=== PATIENT | female | born 1990 | race Native Hawaiian/Other Pacific Islander ===

== ENCOUNTER 2021-08-16 07:48 | Outpatient (CLI) | payer OTHER, SELFPAY ==
[2021-08-16 08:28] LABS: Alanine Aminotransferase 21 U/L (4-35); Albumin Level 4.5 g/dL (3.5-5.1); Alkaline Phosphatase 75 U/L (38-126); Amylase 93 U/L (30-110); Aspartate Amino Transferase 40 U/L (14-36); Bilirubin,Total 0.6 mg/dL (0.2-1.3); Lipase 229 U/L (23-300)
== END 2021-08-16 07:49 | disposition home or self-care (01) ==
LOC: ANHSURGERY 07:52
PROVIDERS: PCP Family Medicine; Visit Provider Surgery
DX: Z01.818 Encounter for other preprocedural examination (principal); K80.00 Calculus of gallbladder with acute cholecystitis without obstruction
CPT/HCPCS: 36415; 80076; 82150; 83690; 86850; 86900; 86901

== ENCOUNTER 2021-08-22 02:19 | Day surgery (SDC) | payer OTHER, SELFPAY ==
[2021-08-15 08:29] VITALS: BMI 36.7
--- NOTE | 2021-08-15 08:39 | PC.NURSE ---
Report to the Outpatient Waiting Room, entrance under the green pavilion located off [facility], at time 12:00 on date 08/22/21. OR Time: 2:00. - You and your visitor will be asked a series of questions to screen for COVID 19 for your protection. - A mask is required within the hospital. One visitor will be allowed to accompany the patient into the hospital. Patients visitor will be instructed to remain with patient at all times or leave the building. We will allow the visitor to come back to the postoperative area when patient is ready. Preoperative COVID Testing Requirements: No COVID Test needed if: (proof is required; if not received patient will have Rapid Test prior to entry) - Patient has received COVID Vaccine at least 14 days prior to procedure date or - Patient has positive COVID test result within last 90 days of surgery date. COVID Test needed if above criteria is not met Patients may have clear liquids (water, carbonated beverages, clear teas, apple juice) until 3 hours prior to surgery (11:00) with a maximum of 20 ounces. - No food from midnight until time of surgery Take the following medications with a SIP of water the morning of surgery: SERTRALINE Medications to discontinue per physician: VITAMINS/SUPPLEMENTS Date to take last dose: 08/18/21 Please no make-up, nail mongolian, hairspray, perfume, deodorant, or body powder the day of surgery. No jewelry (including any body piercings) or valuables the day of surgery, leave them at home. Please take a shower or bath the night before, or the morning of, surgery with an antibacterial soap. Wear comfortable, loose fitting clothing. HIBICLENS SHOWER - Jewelry must be removed prior to entering the operating room. Rings and piercings that are not removed may be cut off. - The hospital will not accept responsibility for valuables. - Please leave all valuables, including medications, at home the day of surgery. If you are going home after surgery, a licensed automobile drivers must drive you home. - NO public transportation without another adult. - We recommend that an adult stay with you for 24 hours following discharge. - We also recommend that you do not drive, make important decision, drink alcoholic beverages, or take any drugs that were not prescribed by your health care provider for at least 24 hours after your discharge time. Follow any additional instructions given to you from your surgeon. Telephone instructions given to MOISES MANNING and asked if any additional questions and then verbalized understanding. Patient advised to call surgeon office or pre surgery nurse liaison [phone] if any additional questions.
[2021-08-22] VITALS (11 sets, daily range): BP systolic 114–140; BP diastolic 71–98; PULSE 76–103; RESP 13–20; TEMP 36.2–36.3; O2SAT 96–100
--- NOTE | 2021-08-22 11:57 | WPDHPUPDATE1 ---
History and Physical Update Update Date/Time: 08/22/21 11:57 History and Physical has been reviewed, including an updated exam of the patient. There are NO changes in the patient's condition. Risks, benefits, and alternatives have been discussed and questions answered. Patient agrees to proceed with procedure.
[2021-08-22] MEDS: ACETAMINOPHEN 500 MG TABLET 1000 MG PO (12:41)
[2021-08-22] MEDS: LACTATED RINGERS 1,000 ML 30 ML IV CONT ×3 (13:12→15:48)
[2021-08-22] MEDS: KETOROLAC 15 MG/ML VIAL (*BKC) IV PUSH (13:12)
--- NOTE | 2021-08-22 13:26 | WPDANESEPPF ---
Anes - Initial Pre Proc Eval Procedure: Operation Date: 08/22/21 14:00 Proposed Procedures p Laparoscopic Cholecystectomy - Vannessa Hassan MD Date/Time: 08/22/21 13:26 Surgeon: Vannessa Hassan MD Pre Op Diagnosis: acute cholecystitis with stones Patient Data Age: 31 Gender: F Height: 1.63 m Weight: 95.7 kg Last Vital Signs Temp 36.2 C L 08/22/21 11:59 Pulse 95 08/22/21 11:59 Resp 20 08/22/21 11:59 BP 138/98 H 08/22/21 11:59 Pulse Ox 99 08/22/21 11:59 Allergies Allergy/AdvReac Type Severity Reaction Status Date / Time cinnamon Allergy Mild MOUTH Verified 08/22/21 12:35 BLISTERS latex AdvReac Intermediate Rash Verified 08/22/21 12:35 Home Medications Medication Instructions Recorded Confirmed Type medroxyprogesterone 150 mg/mL 150 mg IM [id number] 09/26/19 08/22/21 History intramuscular suspension omeprazole 20 mg capsule,delayed 20 mg PO DAILY #90 cap 09/26/19 08/22/21 Rx release ondansetron HCl 4 mg tablet 4 mg PO Q8H PRN 08/08/21 08/22/21 History sertraline 50 mg tablet 50 mg PO DAILY 08/08/21 08/22/21 History calcium 500 mg PO DAILY 08/15/21 08/22/21 History Patient hx anesthesia problems: other (motion sickness) Family hx anesthesia problems: none Results Review: All pre-operative results and documents have been reviewed as part of the pre-operative evaluation. [facility] Past Medical History Medical History Anxiety Depression Eczema of lower leg Gastroesophageal reflux disease without esophagitis Surgical History Surgical History H/O oral surgery Family History Family History Mother Diabetes mellitus Family history of bipolar disorder Hypertension Father Family history of type 1 diabetes mellitus Depression Anxiety Sibling Anxiety Depression Grandparent Diabetes mellitus Hypertension Grandparent Diabetes mellitus Cerebrovascular accident Social History Social History Smoking status: Never smoker Alcohol intake: current Alcohol use details: has 1 to 2 drinks a month Substance use: never Substance use type: does not use Living arrangements: with family 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 Gender identity (if verbalized by the patient): Female Sexual Orientation (if Verbalized by the Patient): Straight or Heterosexual Spiritual care concerns: No Anes - Eval Final PreProcedure Day of Procedure 08/22/21 13:26 Patient weight: obese Heart: regular rate and rhythm Lungs: clear to auscultation Airway: Mallampati scale class II Neurological: alert and oriented Last oral intake: >/= 8 hours ASA classification: III Emergent: no Anesthetic plan: proceed Anesthesia type and monitoring: general ETT and standard monitoring Results Review: All pre-operative results and documents have been reviewed as part of the pre-operative evaluation. Informed Consent: The patient's anesthetic plan and its attendant risks and benefits were discussed with the patient/family/POA. Questions were solicited and answers provided to the satisfaction of the patient/family/POA.
[2021-08-22] MEDS: SCOPOLAMINE 1.5 MG PATCH TRANSDERM (13:33)
[2021-08-22] MEDS: ceFAZolin 2 GM/D5W 50 ML 2 GM/50 ML BAG IVPB (13:57)
--- NOTE | 2021-08-22 14:36 | W.PM.PROC2 ---
Procedure Note - Detailed Date of Procedure 08/22/21 Pre-op Diagnosis acute cholecystitis with stones Post-op Diagnosis Same Procedure Performed Laparoscopic cholecystectomy Surgeon Vannessa Hassan MD Anesthesia General Indications 31-year-old female with acute cholecystitis, cholelithiasis Findings cholecystitis with cholelithiasis Description of Procedure The patient was taken to the operating room placed in the supine position. After adequate induction of general anesthesia, the patient was prepped and draped in normal sterile fashion. A time-out was then performed to verify the patient's identity as well as the procedure being performed. I then made a 5 mm incision in the infraumbilical region. Through this, a Veress needle was placed into the peritoneal cavity and CO2 gas was then insufflated. After adequate pneumoperitoneum was achieved, the Veress needle was removed and a 5 mm optiview trocar was placed through this incision under direct visualization. I then placed the laparoscope through this trocar site and under direct visualization placed a further 12 mm subxiphoid port as well as 2 additional 5 mm ports in the right upper abdomen. The gallbladder was then identified and was noted to be moderately inflamed, distended, and full of gallstones. I was able to place a grasper at the dome of the gallbladder and this was retracted anterior and cephalad up over the liver. A 2nd retractor was then placed at the infundibulum and retracted laterally, this allowed visualization of the triangle of Calot. I then was able to visualize the cystic duct in its entirety from its proximal insertion into the gallbladder, to its distal junction with the common hepatic/common bile duct junction. At this point, I carefully skeletonized the proximal cystic duct with the [place] dissector. I then clipped and transected the proximal cystic duct. Next I visualized the cystic artery. Again the artery was skeletonized, clipped, and transected. I then used the Bovie cautery to take down the peritoneal attachments of the gallbladder off the liver bed. Once the gallbladder specimen was completely detached, an endo-pouch was placed through the 12 mm port site. I then placed the gallbladder specimen into the Endo pouch and removed the endo-pouch from the 12 mm port site. The specimen will now be sent to pathology for further review. I then copiously irrigated the right upper quadrant. Hemostasis was noted in the liver bed, the clips were noted to be in good position on both the cystic duct stump and the cystic artery stump. No other pathology was noted in the right upper quadrant. I then moved the laparoscope to the subxiphoid port. No iatrogenic injury or other pathology was noted in the lower abdomen. I then closed the 12 mm trocar site under direct visualization using the Panchito cone and 0 Vicryl suture. At this point, the abdomen was desufflated and all ports removed. All port sites were then closed with 4.O Monocryl subcuticular sutures. Dermabond was placed on each incision. The patient tolerated the procedure well, was extubated in the operating room postoperative and will be transferred to the recovery room in stable condition Estimated Blood Loss 5 Drains No Packing No Pathology Yes Complications No immediate complications Condition Stable Disposition PACU
[2021-08-22] MEDS: ONDANSETRON INJ 4 MG/2 ML VIAL IV PUSH (14:56)
[2021-08-22] MEDS: fentaNYL CITRATE INJ (*CRX) 100 MCG/2 ML VIAL 25 MCG IV PUSH ×8 (15:01→15:58)
[2021-08-22] MEDS: oxyCODONE HCL (*CRX) 5 MG TAB IR PO (16:30)
[2021-08-22] MEDS: diphenhydrAMINE HCl INJ 50 MG/ML VIAL 25 MG IV PUSH (16:31)
--- NOTE | 2021-08-22 18:03 | SUR.PHASEII ---
delay for discharge due to pain control and nausea. pt said it improved with pain pill and ambulation to the bathroom
== END 2021-08-22 17:50 | disposition home or self-care (01) ==
PROVIDERS: PCP Family Medicine; Visit Provider Surgery
PROC: 0FT44ZZ Resection of Gallbladder, Percutaneous Endoscopic Approach (ICD-10-PCS; CPT 47562; principal; 2021-08-22 14:00)
DX: K80.10 Calculus of gallbladder with chronic cholecystitis without obstruction (principal); K21.9 Gastro-esophageal reflux disease without esophagitis; F41.8 Other specified anxiety disorders; E66.9 Obesity, unspecified; Z68.36 Body mass index [BMI] 36.0-36.9, adult
CPT/HCPCS: 47562; 88304; A9270; J0330; J0690; J1100; J1200; J1885; J2250; J2405; J2704; J2710; J3010; J7030; J7120

== ENCOUNTER 2022-01-08 08:25 | Emergency (ER) | payer OTHER, SELFPAY ==
[2022-01-08 08:28] VITALS: BP 141/115; PULSE 105; RESP 18; TEMP 36.6; O2SAT 98
--- NOTE | 2022-01-08 08:29 | ED.SKABFB ---
HPI - Skin/Abscess/Foreign Bdy General Chief complaint: Skin/Abscess/Foreign Body Stated complaint: Rash Time Seen by Provider: 01/08/22 08:50 Source: patient and RN notes reviewed Mode of arrival: ambulatory Limitations: no limitations History of Present Illness HPI narrative: 31-year-old female presents with concern for rash to her face. She reports she noticed a few bumps yesterday, the rash worsened this morning to her face and is now going towards her eye causing itching and swelling to her left eyelid. She reports the rash is burning and itching. 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 She denies any history of similar reactions to personal care products or household products. She reports an allergy to cinnamon that causes blisters on her mouth. She denies trouble breathing, trouble swallowing, swollen lips, swollen tongue, vomiting, diarrhea, fever. She denies eye redness, pain or vision changes. Reports watery drainage from her left eye. MD complaint: rash Related Data Home Medications Medication Instructions Recorded Confirmed medroxyprogesterone 150 mg/mL 150 mg IM [id number] 09/26/19 01/08/22 intramuscular suspension (Depo-Provera) sertraline 50 mg tablet 50 mg PO DAILY 08/08/21 01/08/22 calcium 500 mg tablet 500 mg PO DAILY 08/15/21 09/10/21 Allergies Allergy/AdvReac Type Severity Reaction Status Date / Time cinnamon Allergy Mild MOUTH Verified 01/08/22 08:54 BLISTERS latex AdvReac Intermediate Rash Verified 01/08/22 08:54 Review of Systems Review of Systems: CONSTITUTIONAL: Denies malaise, chills, sweats, or fever. EYES: Denies redness, or discharge. ENT: Denies rhinorrhea, congestion, swollen lips, swollen tongue CARDIOVASCULAR: Denies chest pain, palpitations, or edema. RESPIRATORY: Denies cough or dyspnea. GASTROINTESTINAL: Denies abdominal pain, nausea, vomiting SKIN: Reports itchy and burning rash to her face MUSCULOSKELETAL: Denies joint pain or myalgia. NEUROLOGIC: Denies headache. All systems reviewed & are unremarkable except as noted in HPI and below PMFSH Past Medical History Medical History Anxiety Depression Eczema of lower leg Gastroesophageal reflux disease without esophagitis Surgical History Surgical History H/O oral surgery Hx laparoscopic cholecystectomy 08/22/21 Family History Family History Mother Diabetes mellitus Family history of bipolar disorder Hypertension Father Family history of type 1 diabetes mellitus Depression Anxiety Sibling Anxiety Depression Grandparent Diabetes mellitus Hypertension Grandparent Diabetes mellitus Cerebrovascular accident Social History Social History Smoking status: Never smoker Alcohol intake: current Alcohol use details: has 1 to 2 drinks a month Substance use: never Substance use type: does not use 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 There is no relevant family history pertinent to the presenting complaint Exam Narrative: GENERAL: Well-appearing, well-nourished, and in no acute distress. HEAD: Normocephalic, atraumatic. EYES: PERRLA and EOMI. Bilateral conjunctivae and sclera clear. Mild edema noted to the left upper eyelid and lower eyelid with small amount of watery drainage ENT: Mucous membranes moist. Oropharynx without edema, erythema or lesions. NECK: Supple. No lymphadenopathy CHEST: Clear to auscultation. No res
== END 2022-01-08 09:05 | disposition home or self-care (01) ==
PROVIDERS: Emergency Provider Nurse Practitioner
DX: L25.9 Unspecified contact dermatitis, unspecified cause (principal); K21.9 Gastro-esophageal reflux disease without esophagitis; F41.9 Anxiety disorder, unspecified; F32.A Depression, unspecified
CPT/HCPCS: 99213; G0463

== ENCOUNTER 2022-05-22 12:33 | Outpatient (CLI) | payer OTHER, SELFPAY ==
[2022-05-22 19:23] LABS: Basophils Percent Auto 0.5 % (0.2-1.2); Eosinophils Absolute Auto 0.3 K/mm3 (0-0.3); Eosinophils Percent Auto 3.4 % (0-4.4); Hemoglobin 15.6 g/dL (12.0-15.0); Immature Granulocyte Absolute 0.03 K/mm3 (0.00-0.031); Immature Granulocyte Percent A 0.4 % (0-0.5); Lymphocytes Absolute Auto 2.19 K/mm3 (0.9-3.2); Lymphocytes Percent Auto 26.7 % (18.3-44.2); Mean Corpuscular HGB Conc 32.5 g/dl (32-36); Mean Corpuscular Hemoglobin 30.2 pg (26-34); Mean Platelet Volume 10.4 fl (7.4-10.4); Monocytes Absolute Auto 0.5 K/mm3 (0.1-0.6); Monocytes Percent Auto 5.7 % (2.6-8.5); Neutrophils Absolute Auto 5.2 K/mm3 (1.3-6.7); Neutrophils Percent Auto 63.3 % (45.5-73.1); Platelet Count Result 330 k/mm3 (150-375); Red Blood Count 5.16 M/mm3 (4.2-5.4); Red Cell Distribution Width 12.7 % (11.5-14.5); White Blood Count 8.2 K/mm3 (4.5-10.0)
[2022-05-22 20:06] LABS: Alanine Aminotransferase 26 U/L (6-35); Albumin Level 4.8 g/dL (3.5-5.1); Alkaline Phosphatase 82 U/L (38-126); Anion Gap 6 mmol/L (8-16); Aspartate Amino Transferase 61 U/L (14-36); Bilirubin,Total 0.7 mg/dL (0.2-1.3); Blood Urea Nitrogen 12 mg/dL (7-17); Calcium 9.2 mg/dL (8.4-10.2); Carbon Dioxide 28 mmol/L (22-30); Chloride 106 mmol/L (98-107); Cholesterol 167 mg/dL (0-200); Estimated Glomerular Filt Rate > 60; Glucose 85 mg/dL (65-110); HDL Direct 36 mg/dL; Potassium 4.2 mmol/L (3.4-5.0); Sodium 140 mmol/L (137-145); Triglycerides 83 mg/dL (<150)
[2022-05-22 20:17] LABS: LDL Cholesterol Direct 94 mg/dL
== END 2022-05-22 12:34 | disposition home or self-care (01) ==
LOC: ANHGOSHLAB 12:34
PROVIDERS: PCP Family Medicine; Visit Provider Family Medicine
DX: R53.83 Other fatigue (principal); Z13.228 Encounter for screening for other metabolic disorders; Z13.220 Encounter for screening for lipoid disorders; Z13.29 Encounter for screening for other suspected endocrine disorder
CPT/HCPCS: 36415; 80053; 80061; 84443; 85025

== ENCOUNTER 2022-06-14 10:28 | Outpatient (CLI) | payer OTHER, SELFPAY ==
[2022-06-14 11:00] LABS: Alanine Aminotransferase 23 U/L (6-35); Aspartate Amino Transferase 35 U/L (14-36)
== END 2022-06-14 10:29 | disposition home or self-care (01) ==
PROVIDERS: PCP Family Medicine; Visit Provider Podiatrist Foot & Ankle Surgery
DX: B35.1 Tinea unguium (principal)
CPT/HCPCS: 36415; 84450; 84460

== ENCOUNTER 2022-09-11 16:11 | Outpatient (CLI) | payer OTHER, SELFPAY ==
[2022-09-11 17:48] LABS: Alanine Aminotransferase 23 U/L (6-35); Aspartate Amino Transferase 42 U/L (14-36)
== END 2022-09-11 16:12 | disposition home or self-care (01) ==
LOC: ANHLAB 16:13
PROVIDERS: PCP Family Medicine; Visit Provider Podiatrist Foot & Ankle Surgery
DX: B35.1 Tinea unguium (principal)
CPT/HCPCS: 36415; 84450; 84460

== ENCOUNTER 2022-12-11 15:35 | Outpatient (CLI) | payer OTHER, SELFPAY ==
[2022-12-11 16:45] LABS: Alanine Aminotransferase 27 U/L (6-35); Aspartate Amino Transferase 47 U/L (14-36)
== END 2022-12-11 15:36 | disposition home or self-care (01) ==
LOC: ANHLAB 15:36
PROVIDERS: PCP Family Medicine; Visit Provider Podiatrist Foot & Ankle Surgery
DX: B35.1 Tinea unguium (principal)
CPT/HCPCS: 36415; 84450; 84460

== ENCOUNTER 2023-05-07 13:59 | Outpatient (CLI) | payer OTHER, SELFPAY ==
[2023-05-07 19:29] LABS: Alanine Aminotransferase 24 U/L (6-35); Albumin Level 4.4 g/dL (3.5-5.1); Alkaline Phosphatase 79 U/L (38-126); Anion Gap 10 mmol/L (8-16); Aspartate Amino Transferase 48 U/L (14-36); Bilirubin,Total 0.6 mg/dL (0.2-1.3); Blood Urea Nitrogen 12 mg/dL (7-17); Calcium 9.2 mg/dL (8.4-10.2); Carbon Dioxide 26 mmol/L (22-30); Chloride 106 mmol/L (98-107); Cholesterol 154 mg/dL (0-200); Estimated Glomerular Filt Rate > 60; Glucose 84 mg/dL (65-110); HDL Direct 36 mg/dL; Potassium 4.2 mmol/L (3.4-5.0); Sodium 142 mmol/L (137-145); Triglycerides 59 mg/dL (<150)
[2023-05-07 19:45] LABS: LDL Cholesterol Direct 101 mg/dL
[2023-05-07 20:15] LABS: Hemoglobin A1C 5.4 % (<5.7)
== END 2023-05-07 14:00 | disposition home or self-care (01) ==
LOC: ANHGOSHLAB 14:00
PROVIDERS: PCP Family Medicine; Visit Provider Family Medicine
DX: Z13.228 Encounter for screening for other metabolic disorders (principal); R73.9 Hyperglycemia, unspecified; Z13.220 Encounter for screening for lipoid disorders
CPT/HCPCS: 36415; 80053; 80061; 83036

== ENCOUNTER 2023-12-01 17:24 | Emergency (ER) | payer OTHER, SELFPAY ==
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
[2023-12-01 17:36] VITALS: BP 150/104; PULSE 100; RESP 20; TEMP 36.8; O2SAT 100
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
== END 2023-12-01 19:15 | disposition home or self-care (01) ==
PROVIDERS: Emergency Provider Registered Nurse; PCP Family Medicine
DX: S13.9XXA Sprain of joints and ligaments of unspecified parts of neck, initial encounter (principal); V43.52XA Car driver injured in collision with other type car in traffic accident, initial encounter; M54.50 Low back pain, unspecified; K21.9 Gastro-esophageal reflux disease without esophagitis
CPT/HCPCS: 72040; 72100; 99213; G0463

== ENCOUNTER 2024-03-06 17:02 | Observation (INO) | payer OTHER, SELFPAY ==
--- NOTE | ~2024-03-06 | CT_ITS ---
CT of the Abdomen and Pelvis: Indication: Abdominal pain Technique: 2.5 mm axial scans were obtained through the abdomen and pelvis following intravenous adm inistration of 100 cc of Omnipaque 350. Dedicated axial imaging of the lumbar spine was also performe d, with sagittal and coronal reformatted images. Dose reduction technique was used on this scan by ut ilizing automated exposure control and iterative reconstruction technique. The dose-length product (D LP) was 1444.61 mGy-cm. Abdomen/pelvis Findings: Scans through the lung bases are unremarkable. The liver, spleen, pancreas, adrenals and kidneys are within normal limits. Cholecystectomy clips are present. No evidence of aortic aneurysm. No lymphadenopathy. No bowel obstruction or bowel wall thickening. There is no evidence to suggest acute appendicitis. Images through the pelvis were performed. Urinary bladder unremarkable. No pelvic mass seen. No ascit es. Lumbar spine findings: There is no fracture or subluxation of the lumbar spine. Vertebral bodies main tain normal height and alignment. Intervertebral disc spaces are preserved. At L1-L2, L2-L3, L3-L4, there is no disc bulge or herniation. No spinal canal stenosis or neural fora butch narrowing at these levels. At L4-L5, there is minimal disc bulge with mild facet hypertrophy. No spinal canal stenosis or neural foraminal narrowing. At L5-S1, there is minimal disc bulge. No spinal canal stenosis. Probable minimal bilateral neural fo raminal narrowing. Impression: No acute abnormalities. Minimal degenerative change in the lumbar spine, as above. Reviewed, dictated and finalized at [facility]. 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 Minimal degenerative change in the lumbar spine, as above.
--- NOTE | ~2024-03-06 | MR_ITS ---
EXAMINATION: MR lumbar spine wo/w con DATE: 03/07/2024 12:44 INDICATION: Low back pain. TECHNIQUE: Magnetic resonance imaging (MRI) of the lumbar spine was performed without and with 20 mL MultiHance intravenous contrast. COMPARISON: CT lumbar spine 03/06/2024 FINDINGS: Bone alignment is normal. Vertebral body heights are normal. There is mildly decreased disc height at L4-L5 and moderately decreased disc height at L5-S1. The distal spinal cord signal intensi ty is normal. The conus medullaris is at L1. The following disc levels are specifically discussed: L1-L2: The disc does not extend beyond the endplate margin. There is mild left facet joint osteoarthr itis. There is no neural foraminal stenosis. There is no central canal stenosis. L2-L3: The disc does not extend beyond the endplate margin. There is mild bilateral facet joint osteo arthritis. There is no neural foraminal stenosis. There is no central canal stenosis. L3-L4: The disc does not extend beyond the endplate margin. There is mild bilateral facet joint osteo arthritis. There is no neural foraminal stenosis. There is no central canal stenosis. L4-L5: There is a central extrusion. There is mild left facet joint osteoarthritis. There is mild lef t neural foraminal stenosis. There is mild central canal stenosis. L5-S1: There is a central extrusion. There is mild right and moderate left facet joint osteoarthritis . There is mild bilateral neural foraminal stenosis. There is mild central canal stenosis. IMPRESSION: 1. Mild lumbar spondylosis. Reviewed, dictated and finalized at location A. WEIGHER HELPER IMPRESSION: 1. Mild lumbar spondylosis.
--- NOTE | ~2024-03-06 | MR_ITS ---
EXAMINATION: MR thoracic spine wo/w con DATE: 03/07/2024 12:44 INDICATION: Back pain. TECHNIQUE: Magnetic resonance imaging (MRI) of the thoracic spine was performed without and with 20 m L MultiHance intravenous contrast. COMPARISON: None FINDINGS: There is mild kyphosis of thoracic spine. There is 3 degrees levocurvature of cervicothorac ic spine. There is mild chronic anterior wedging of T2-T7 vertebral bodies. Intervertebral disc heigh ts are normal. The discs do not extend beyond the endplate margins. The facet joints are normal. No n eural foraminal stenosis or central canal stenosis. There is spinal cord signal intensity is normal. IMPRESSION: 1. No etiology for the patient's symptoms. Reviewed, dictated and finalized at location A. TOLOGIC LINGUIST
[2024-03-06 17:04] VITALS: BP 150/96; PULSE 120; RESP 18; TEMP 36.6; O2SAT 98
[2024-03-06 17:26] LABS: BEDSIDEPREGUCG Negative (Negative)
[2024-03-06 20:21] VITALS: BP 162/114; PULSE 97; RESP 20; O2SAT 100
--- NOTE | 2024-03-06 20:38 | ED.BACK ---
HPI - Back Pain/Injury General Chief Complaint: Back Pain/Injury Stated Complaint: BACK PAIN,CONSTIPATION Time Seen by Provider: 03/06/24 20:29 Source: patient and family () Limitations: physical limitation (/pain) History of Present Illness HPI Narrative: Patient presents with acute onset low back pain. She states it started when she was sitting up eating breakfast but she felt a pop in her back as she tried to open a window. Her last bowel movement of diarrhea low liquid stool was on Thursday and her doctor placed her on a powder as was felt that this might be due to her history of a cholecystectomy. She started this medication on Thursday and subsequently became constipated today. The pain radiates into her bilateral legs though with paresthesias in her right leg. She lost control of her bladder this evening and states it was because she did not even realize that she had gone. She also has paresthesias in her crying and proximal thighs. She denies any fever IV drug use. At approximately 4:00 p.m. she took 4 ibuprofen but that did not help. Related Data Home Medications Medication Instructions Recorded Confirmed medroxyprogesterone 150 mg/mL 150 mg IM [id number] 09/26/19 03/07/24 intramuscular suspension (Depo-Provera) terbinafine HCl 250 mg tablet 250 mg PO 2XW 05/07/23 03/07/24 diphenhydramine HCl 25 mg capsule 25 mg PO HS PRN allergies 03/07/24 03/07/24 (Benadryl) diphenhydramine HCl 25 mg capsule 25 mg PO HS PRN Insomnia 03/07/24 03/07/24 (ZzzQuil) Allergies Allergy/AdvReac Type Severity Reaction Status Date / Time cinnamon Allergy Mild MOUTH Verified 03/06/24 20:18 BLISTERS nickel Allergy Mild Rash Verified 03/06/24 20:18 latex AdvReac Intermediate Rash Verified 03/06/24 20:18 [facility] Past Medical History Medical History Anxiety Depression Eczema of lower leg Gastroesophageal reflux disease without esophagitis Irritable bowel syndrome with both constipation and diarrhea Seasonal allergies Surgical History Surgical History H/O dilation and curettage H/O oral surgery Hx laparoscopic cholecystectomy 08/22/21 Family History Family History (Updated 03/07/24 @ 02:10 by Rosalva Frazier RN) Mother Diabetes mellitus Family history of bipolar disorder Hypertension Father Anxiety Depression Family history of type 1 diabetes mellitus Diabetes mellitus Sibling Anxiety Depression Non-alcoholic fatty liver disease Grandparent Diabetes mellitus Hypertension Grandparent Diabetes mellitus Cerebrovascular accident Social History Social History Smoking status: Never smoker Alcohol intake: current Alcohol use details: Socially Substance use: never Substance use type: does not use Do You Feel Safe in your Home?: Yes Lack of Transportation: No Lack of Food: Never True Current Housing: I Have Housing Concerned About Future Housing: No Difficulty Paying Gas/Electric Bills: No Difficulty Paying for Meds: No Currently Unemployed: No Education: Bachelor's Degree Difficulty w/ Childcare or Family Care: No Living arrangements: with family Occupation/Education: occupation 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 HEAD: Normocephalic, atraumatic. EYES: Non injected, non icteric ENT: Nares clear, no rhinorrhea or epistaxis. NECK: Supple. CHEST: Speaking in full sentences. No respiratory distress. HEART: Regular rate and rhythm. ABDOMEN: Obese but Soft, nondistended. Rectal: Rectum not atonic. EXTREMITIES: No lower extremity edema. SKIN: Warm, dry, no rash. NEURO: Alert and oriented x3. Hyperreflexive patellar reflexes bilaterally. Patient endorses decreased sensation to touch throughout bilateral lower extremities. No fasciculations. 4/5 strength in bilateral lower extremities with knee flexion/extension and hip flexion though suspect possibly give-way. 5/5 with bilateral dorsiflexion/plantarflexion. PSYCH: Congruent mood and affect. Tearful Course Vital Signs Vital signs: Vital Signs Temperature 97.9 F 03/06/24 17:04 Pulse Rate 120 H 03/06/24 17:04 Respiratory Rate 18 03/06/24 17:04 Blood Pressure 150/96 H 03/06/24 17:04 Pulse Oximetry 98 03/06/24 17:04 Oxygen Delivery Room Air 03/06/24 17:04 Temperature 98 F 03/08/24 06:00 Pulse Rate 91 03/08/24 06:00 Respiratory Rate 18 03/08/24 06:00 Blood Pressure 135/82 03/08/24 06:00 Pulse Oximetry 97 03/08/24 06:00 Oxygen Delivery Room Air 03/07/24 20:04 MDM - Back Pain/Injury MDM Narrative Medical decision making narrative: Patient presents with acute onset back pain. She is also describing pain that radiates into her bilateral legs with paresthesias in her right leg and saddle anesthesia in addition to urinary incontinence. In the emergency department she is afebrile with vital signs notable for hypertension tachycardia. Negative test. Postvoid residual 14mL. This, combined with hyper-reflexia makes cauda equina less suspicious, though concerning for conus medullaris. Patient has findings on urinalysis concerning for urinary tract infection. This might explain her urinary incontinence. Elevated ESR. STeroid administered. Discussed with diamond sorter neurosurgeon who concurs that patient will likely need MRI and will be seen in the morning. Discussed with diamond sorter hospitalist Dr Matthews. Observation admission orders placed. Differential Diagnosis Differential diagnosis: Likely lumbar radiculopathy, strain of lumbar region, discitis and other (conus medullaris syndrome, cauda equina syndrome) Lab Data 03/08/24 05:24 03/08/24 05:24 Labs: Lab Results 03/06/24 03/06/24 03/06/24 Range/Units 17:24 21:34 22:33 WBC 8.7 (4.5-10.0) K/mm3 RBC 4.42 (4.2-5.4) M/mm3 Hgb 13.9 (12.0-15.0) g/dL Hct 41.3 (37.0-47.0) % MCV 93.4 (80-100) fl MCH 31.4 (26-34) pg MCHC 33.7 (32-36) g/dl RDW 12.0 (11.5-14.5) % Plt Count 278 (150-375) k/mm3 MPV 10.2 (7.4-10.4) fl Immature Gran % (Auto) 0.2 (0-0.5) % Neut % (Auto) 64.8 (45.5-73.1) % Lymph % (Auto) 25.8 (18.3-44.2) % [place] % (Auto) 5.8 (2.6-8.5) % Eos % (Auto) 2.9 (0-4.4) % Baso % (Auto) 0.5 (0.2-1.2) % Lymph # (Auto) 2.24 (0.9-3.2) K/mm3 [place] # (Auto) 0.5 (0.1-0.6) K/mm3 Eos # (Auto) 0.3 (0-0.3) K/mm3 Baso # (Auto) 0.0 (0.0-0.1) K/mm3 Abs Immat Gran (auto) 0.02 (0.00-0.031) K/mm3 Absolute Neuts (auto) 5.6 (1.3-6.7) K/mm3 Absolute Nucleated RBC 0.000 (0.0-0.012) K/mm3 Nucleated RBC % 0.0 (0.0-0.2) % ESR Cancelled PT 13.9 (11.1-14.7) Seconds INR 1.0 Sodium 141 (137-145) mmol/L Potassium 3.7 (3.4-5.0) mmol/L Chloride 110 H (98-107) mmol/L Carbon Dioxide 19 L (22-30) mmol/L Anion Gap 12 (4-12) mmol/L BUN 12 (7-17) mg/dL Creatinine 0.60 L (0.7-1.0) mg/dL Estim Creat Clear Calc 133 ml/min Estimated GFR > 60 (59 - ) Glucose 93 (65-110) mg/dL Calcium 8.8 (8.4-10.2) mg/dL C-Reactive Protein 0.7 (<1.0) mg/dL Urine Color Yellow (Yellow) Urine Appearance Cloudy H (Clear) Urine pH 5.5 (5.0-9.0) Ur Specific [place] 1.041 H (1.001-1.035) Urine Protein 1+ H (Negative) mg/dL Urine Glucose (UA) Negative (Negative) mg/dL Urine Ketones Trace H (Negative) mg/dL Ur Blood (Man) Negative (Negative) Urine Nitrate Negative (Negative) Urine Bilirubin Negative (Negative) Urine Urobilinogen 0.2 (<2.0) mg/dL Leukocyte Esterase Rfl 1+ H (Negative) [place]/UL Urine RBC 3-5 H (0-2) /hpf Urine WBC 11-20 H (0-3) /hpf Ur Squamous Epith Cells Few (Few) /hpf Urine Bacteria 2+ H /hpf Urine Casts 0-2 POC Urine HCG, Qual Negative (Negative) 03/07/24 Range/Units 00:30 WBC (4.5-10.0) K/mm3 RBC (4.2-5.4) M/mm3 Hgb (12.0-15.0) g/dL Hct (37.0-47.0) % MCV (80-100) fl MCH (26-34) pg MCHC (32-36) g/dl RDW (11.5-14.5) % Plt Count (150-375) k/mm3 MPV (7.4-10.4) fl Immature Gran % (Auto) (0-0.5) % Neut % (Auto) (45.5-73.1) % Lymph % (Auto) (18.3-44.2) % [place] % (Auto) (2.6-8.5) % Eos % (Auto) (0-4.4) % Baso % (Auto) (0.2-1.2) % Lymph # (Auto) (0.9-3.2) K/mm3 [place] # (Auto) (0.1-0.6) K/mm3 Eos # (Auto) (0-0.3) K/mm3 Baso # (Auto) (0.0-0.1) K/mm3 Abs Immat Gran (auto) (0.00-0.031) K/mm3 Absolute Neuts (auto) (1.3-6.7) K/mm3 Absolute Nucleated RBC (0.0-0.012) K/mm3 Nucleated RBC % (0.0-0.2) % ESR 80 H PT (11.1-14.7) Seconds INR Sodium (137-145) mmol/L Potassium (3.4-5.0) mmol/L Chloride (98-107) mmol/L Carbon Dioxide (22-30) mmol/L Anion Gap (4-12) mmol/L BUN (7-17) mg/dL Creatinine (0.7-1.0) mg/dL Estim Creat Clear Calc ml/min Estimated GFR (59 - ) Glucose (65-110) mg/dL Calcium (8.4-10.2) mg/dL C-Reactive Protein (<1.0) mg/dL Urine Color (Yellow) Urine Appearance (Clear) Urine pH (5.0-9.0) Ur Specific [place] (1.001-1.035) Urine Protein (Negative) mg/dL Urine Glucose (UA) (Negative) mg/dL Urine Ketones (Negative) mg/dL Ur Blood (Man) (Negative) Urine Nitrate (Negative) Urine Bilirubin (Negative) Urine Urobilinogen (<2.0) mg/dL Leukocyte Esterase Rfl (Negative) [place]/UL Urine RBC (0-2) /hpf Urine WBC (0-3) /hpf Ur Squamous Epith Cells (Few) /hpf Urine Bacteria /hpf Urine Casts POC Urine HCG, Qual (Negative) Imaging Data Radiologist's impression: CT ABD/PELVIS STAT RAD Impression: No acute findings CT L Spine Impression: No acute fracture or subluxation of the lumbar spine. Discharge Plan Discharge Clinical Impression: UTI (urinary tract infection), Elevated erythrocyte sedimentation rate Patient Disposition: Still a Patient Condition: Stable
[2024-03-06 20:47] VITALS: BP 166/108; PULSE 96; RESP 18; O2SAT 99
[2024-03-06] MEDS: HYDROcodone/acetaminophen (*CRX) 5-325 MG TABLET 1 TAB PO (20:54)
[2024-03-06 21:02] VITALS: BP 155/105; PULSE 95; RESP 20; O2SAT 96
[2024-03-06 21:17] VITALS: BP 145/88; PULSE 93; RESP 20; O2SAT 99
[2024-03-06 21:59] LABS: Add Urine Microscopic? YES; Appearance Urine Cloudy (Clear); Bacteria Urine 2+ /hpf; Bilirubin Urine Negative (Negative); Blood Urine Negative (Negative); Color Urine Yellow (Yellow); Glucose Urine UA Negative (Negative); Ketones Urine Trace mg/dL (Negative); Leukocyte Esterase Ur 1+ LEU/UL (Negative); Nitrate Urine Negative (Negative); Non Pathogenic Casts 0-2; Protein Urine 1+ mg/dL (Negative); Specific Grav Ur 1.041 (1.001-1.035); Squamous Epithelial Cell Urine Few /hpf (Few); Urobilinogen Urine 0.2 mg/dL (<2.0); pH Urine 5.5 (5.0-9.0)
[2024-03-06] MEDS: diazePAM (*CRX) 5 MG TABLET PO (22:16)
[2024-03-06 22:41] LABS: Basophils Percent Auto 0.5 % (0.2-1.2); Eosinophils Absolute Auto 0.3 K/mm3 (0-0.3); Eosinophils Percent Auto 2.9 % (0-4.4); Hematocrit 41.3 % (37.0-47.0); Hemoglobin 13.9 g/dL (12.0-15.0); Immature Granulocyte Absolute 0.02 K/mm3 (0.00-0.031); Immature Granulocyte Percent A 0.2 % (0-0.5); Lymphocytes Absolute Auto 2.24 K/mm3 (0.9-3.2); Lymphocytes Percent Auto 25.8 % (18.3-44.2); Mean Corpuscular HGB Conc 33.7 g/dl (32-36); Mean Corpuscular Hemoglobin 31.4 pg (26-34); Mean Corpuscular Volume 93.4 fl (80-100); Mean Platelet Volume 10.2 fl (7.4-10.4); Monocytes Absolute Auto 0.5 K/mm3 (0.1-0.6); Monocytes Percent Auto 5.8 % (2.6-8.5); Neutrophils Absolute Auto 5.6 K/mm3 (1.3-6.7); Neutrophils Percent Auto 64.8 % (45.5-73.1); Platelet Count Result 278 k/mm3 (150-375); Red Blood Count 4.42 M/mm3 (4.2-5.4); White Blood Count 8.7 K/mm3 (4.5-10.0)
[2024-03-06 22:55] LABS: Prothrombin Time 13.9 Seconds (11.1-14.7)
[2024-03-06 23:00] VITALS: BP 158/93; PULSE 101; RESP 16; TEMP 36.6; O2SAT 100
[2024-03-06 23:02] LABS: Anion Gap 12 mmol/L (4-12); Blood Urea Nitrogen 12 mg/dL (7-17); CRP 0.7 mg/dL (<1.0); Calcium 8.8 mg/dL (8.4-10.2); Carbon Dioxide 19 mmol/L (22-30); Chloride 110 mmol/L (98-107); Estimated CRCL calculation 133 ml/min; Estimated Glomerular Filt Rate > 60; Glucose 93 mg/dL (65-110); Potassium 3.7 mmol/L (3.4-5.0); Sodium 141 mmol/L (137-145)
[2024-03-06] MEDS: HYDROmorphone HCL INJ (*CRX) 1 MG/ML SYR IV PUSH (23:54)
[2024-03-07] VITALS (7 sets, daily range): BP systolic 132–166; BP diastolic 78–104; PULSE 82–103; RESP 14–20; TEMP 36.2–36.7; O2SAT 92–98
[2024-03-07] MEDS: dexAMETHasone SOD PHOS INJ 10 MG/ML 1 ML VIAL 16 MG IV PUSH (00:25)
[2024-03-07 00:59] LABS: Erythrocyte Sedimentation Rate 80 mm/hr (0-20)
--- NOTE | 2024-03-07 02:30 | ADMGEN ---
This patient, Vanessa Owens, was admitted to 2 Medical Room 258-01. Patient/family oriented to hospital policies and general routines including ID bracelet, bed and alarms, visiting hours, pain management, procedures, bathroom and other care routines, personal items, smoking policy, room service/diet, and visiting hours. Information on how to activate the Rapid Response Team has been discussed. Patient/Family are encouraged to report perceived risks to care and to ask questions if they do not understand what they are told or what they should do.
[2024-03-07] MEDS: HYDROmorphone HCL INJ (*CRX) 1 MG/ML SYR 0.5 MG IV PUSH ×4 (03:30→16:46)
[2024-03-07] MEDS: ONDANSETRON INJ 4 MG/2 ML VIAL IV PUSH ×4 (03:56→20:03)
--- NOTE | 2024-03-07 07:25 | PC.NURSE ---
Patient only had 15 ml urine output in suction canister. Bladder scanned result 365ml retained in bladder. Dr. Matthews, was notified, orders were given to straight catheterize patient. There 420ml drained, report to oncoming nurse to follow up.
[2024-03-07] MEDS: PANTOPRAZOLE 40 MG TABLET PO (08:29)
[2024-03-07 08:52] LABS: Hemoglobin 14.6 g/dL (12.0-15.0); Immature Granulocyte Absolute 0.01 K/mm3 (0.00-0.031); Immature Granulocyte Percent A 0.2 % (0-0.5); Lymphocytes Absolute Auto 0.55 K/mm3 (0.9-3.2); Lymphocytes Percent Auto 12.7 % (18.3-44.2); Mean Corpuscular HGB Conc 33.2 g/dl (32-36); Mean Corpuscular Hemoglobin 30.8 pg (26-34); Mean Corpuscular Volume 92.8 fl (80-100); Mean Platelet Volume 9.9 fl (7.4-10.4); Monocytes Percent Auto 0.7 % (2.6-8.5); Neutrophils Absolute Auto 3.7 K/mm3 (1.3-6.7); Neutrophils Percent Auto 86.4 % (45.5-73.1); Platelet Count Result 317 k/mm3 (150-375); Red Blood Count 4.74 M/mm3 (4.2-5.4); Red Cell Distribution Width 11.9 % (11.5-14.5); White Blood Count 4.3 K/mm3 (4.5-10.0)
[2024-03-07 09:19] LABS: Alanine Aminotransferase 20 U/L (6-35); Albumin Level 4.6 g/dL (3.5-5.1); Alkaline Phosphatase 73 U/L (38-126); Anion Gap 12 mmol/L (4-12); Aspartate Amino Transferase 39 U/L (14-36); Bilirubin,Total 0.4 mg/dL (0.2-1.3); Blood Urea Nitrogen 10 mg/dL (7-17); Calcium 9.4 mg/dL (8.4-10.2); Carbon Dioxide 20 mmol/L (22-30); Chloride 108 mmol/L (98-107); Estimated CRCL calculation 157 ml/min; Estimated Glomerular Filt Rate > 60; Glucose 140 mg/dL (65-110); Magnesium 2.5 mg/dL (1.6-2.3); Potassium 4.3 mmol/L (3.4-5.0); Sodium 140 mmol/L (137-145)
--- NOTE | 2024-03-07 09:28 | P.HP_ITS ---
H&P: HPI History of Present Illness Date/Time: 03/07/24 09:28 Chief Complaint: Patient is a 33 year old female that came to the hospital with back pain. Pain is in lower back that is a 5 , constant, and aching. Patient denies chest pain, palpitations, headache, dizziness, nausea, vomiting, numbness, or tingling. Patient reports that she set down in kitchen yesterday and there was a loud pop in back like she was hit by lightening. Patient reports that later she got up to do dishes and raise window that is a little tight, then her back pain got worse. Patient reports thigh weakness for the last couple of weeks. Patient reports one episode of urine incontinence when sitting on the couch. Family at bedside. Review of Systems Review of Systems: All systems reviewed & are unremarkable except as noted in HPI and below PMFSH Past Medical History Medical History Anxiety Depression Eczema of lower leg Gastroesophageal reflux disease without esophagitis Irritable bowel syndrome with both constipation and diarrhea Seasonal allergies Surgical History Surgical History H/O dilation and curettage H/O oral surgery Hx laparoscopic cholecystectomy 08/22/21 Family History Family History (Updated 03/07/24 @ 02:10 by Rosalva Frazier RN) Mother Diabetes mellitus Family history of bipolar disorder Hypertension Father Anxiety Depression Family history of type 1 diabetes mellitus Diabetes mellitus Sibling Anxiety Depression Non-alcoholic fatty liver disease Grandparent Diabetes mellitus Hypertension Grandparent Diabetes mellitus Cerebrovascular accident Social History Social History Smoking status: Never smoker Alcohol intake: current Alcohol use details: Socially Substance use: never Substance use type: does not use Do You Feel Safe in your Home?: Yes Lack of Transportation: No Lack of Food: Never True Current Housing: I Have Housing Concerned About Future Housing: No Difficulty Paying Gas/Electric Bills: No Difficulty Paying for Meds: No Currently Unemployed: No Education: Bachelor's Degree Difficulty w/ Childcare or Family Care: No Living arrangements: with family Occupation/Education: occupation 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 Gender identity (if verbalized by the patient): Female Sexual Orientation (if Verbalized by the Patient): Straight or Heterosexual Spiritual care concerns: No Meds Home Medications and Allergies Home Medications Medication Instructions Recorded Confirmed Type medroxyprogesterone 150 mg/mL 150 mg IM [id number] 09/26/19 03/07/24 History intramuscular suspension (Depo-Provera) terbinafine HCl 250 mg tablet 250 mg PO 2XW 05/07/23 03/07/24 History omeprazole 20 mg capsule,delayed 20 mg PO DAILY #90 caps 05/19/23 03/07/24 Rx release cholestyramine (with sugar) 4 gram 4 g PO BID #348.6 grams 03/04/24 03/07/24 Rx oral powder diphenhydramine HCl 25 mg capsule 25 mg PO HS PRN allergies 03/07/24 03/07/24 History (Benadryl) diphenhydramine HCl 25 mg capsule 25 mg PO HS PRN Insomnia 03/07/24 03/07/24 History (ZzzQuil) Allergies Allergy/AdvReac Type Severity Reaction Status Date / Time cinnamon Allergy Mild MOUTH Verified 03/06/24 20:18 BLISTERS nickel Allergy Mild Rash Verified 03/06/24 20:18 latex AdvReac Intermediate Rash Verified 03/06/24 20:18 Vital Signs Vital Signs - 24 hr 03/06/24 17:04 03/06/24 20:21 03/06/24 20:47 Temperature 97.9 F Pulse Rate 120 H 97 96 Respiratory Rate 18 20 18 Blood Pressure 150/96 H 162/114 H 166/108 H Pulse Oximetry 98 100 99 Oxygen Delivery Room Air 03/06/24 21:02 03/06/24 21:17 03/06/24 23:00 Temperature 97.8 F Pulse Rate 95 93 101 H Respiratory Rate 20 20 16 Blood Pressure 155/105 H 145/88 H 158/93 H Pulse Oximetry 96 99 100 Oxygen Delivery 03/07/24 01:07 03/07/24 02:39 03/07/24 03:00 Temperature 98.1 F 97.6 F Pulse Rate 82 Respiratory Rate 15 18 Blood Pressure 132/85 135/87 Pulse Oximetry 98 95 Oxygen Delivery Room Air 03/07/24 05:02 03/07/24 08:23 Temperature 97.4 F L Pulse Rate 103 H Respiratory Rate 14 Blood Pressure 137/78 Pulse Oximetry 92 97 Oxygen Delivery Room Air Exam Const: General: no acute distress and uncomfortable Resp: Effort & Inspection: normal respiratory effort Auscultation: clear to auscultation bilaterally Cardio: Rate: regular rate Rhythm: regular rhythm GI: GI Palp: Yes Soft to palpation Auscultation: normal bowel sounds Skin: Other: eczema patch to left hathaway. Neuro: Speech: normal speech Extrem: General: no pedal edema Psych: Mental Status: mental status grossly normal Affect: normal affect H&P: Results Labs Labs: Short CBC 03/06/24 03/07/24 Range/Units 22:33 08:32 WBC 8.7 4.3 L (4.5-10.0) K/mm3 Hgb 13.9 14.6 (12.0-15.0) g/dL Hct 41.3 44.0 (37.0-47.0) % Plt Count 278 317 (150-375) k/mm3 BMP 03/06/24 03/07/24 22:33 08:32 Sodium 141 140 Potassium 3.7 4.3 Chloride 110 H 108 H Carbon Dioxide 19 L 20 L BUN 12 10 Creatinine 0.60 L 0.50 L Glucose 93 140 H Calcium 8.8 9.4 Liver Function 03/07/24 Range/Units 08:32 Total Bilirubin 0.4 (0.2-1.3) mg/dL AST 39 H (14-36) U/L ALT 20 (6-35) U/L Alkaline Phosphatase 73 (38-126) U/L Albumin 4.6 (3.5-5.1) g/dL Urine 03/06/24 Range/Units 21:34 Urine Color Yellow (Yellow) Urine Appearance Cloudy H (Clear) Urine pH 5.5 (5.0-9.0) Ur Specific [place] 1.041 H (1.001-1.035) Urine Protein 1+ H (Negative) mg/dL Urine Glucose (UA) Negative (Negative) mg/dL Assessment and Plan Assessment and plan (1) Back pain: Code(s): M54.9 - Dorsalgia, unspecified Status: Acute Assessment and Plan: * MR lumbar showed:FINDINGS: Bone alignment is normal. Vertebral body heights are normal. There is mildly decreased disc height at L4-L5 and moderately decreased disc height at L5-S1. The distal spinal cord signal intensity is normal. The conus medullaris is at L1. The following disc levels are specifically discussed: L1-L2: The disc does not extend beyond the endplate margin. There is mild left facet joint osteoarthritis. There is no neural foraminal stenosis. There is no central canal stenosis. L2-L3: The disc does not extend beyond the endplate margin. There is mild bilateral facet joint osteoarthritis. There is no neural foraminal stenosis. There is no central canal stenosis. L3-L4: The disc does not extend beyond the endplate margin. There is mild bilateral facet joint osteoarthritis. There is no neural foraminal stenosis. There is no central canal stenosis. L4-L5: There is a central extrusion. There is mild left facet joint osteoarthritis. There is mild left neural foraminal stenosis. There is mild central canal stenosis. L5-S1: There is a central extrusion. There is mild right and moderate left facet joint osteoarthritis. There is mild bilateral neural foraminal stenosis. There is mild central canal stenosis. IMPRESSION: 1. Mild lumbar spondylosis. * MR thoracic spine: FINDINGS: There is mild kyphosis of thoracic spine. There is 3 degrees levocurvature of cervicothoracic spine. There is mild chronic anterior wedging of T2-T7 vertebral bodies. Intervertebral disc heights are normal. The discs do not extend beyond the endplate margins. The facet joints are normal. No neural foraminal stenosis or central canal stenosis. There is spinal cord signal intensity is normal. IMPRESSION: 1. No etiology for the patient's symptoms. * Neurosurgery consult * Hydromorphone 0.5 mg ivp q4 PRN and Acetaminophen 650 mg PO q 4 PRN. (2) Elevated erythrocyte sedimentation rate: Code(s): R70.0 - Elevated erythrocyte sedimentation rate Status: Acute Assessment and Plan: * ESR 80 * Trend labs. (3) Eczema: Code(s): L30.9 - Dermatitis, unspecified Status: Acute Assessment and Plan: * Clobetasol to left hathaway BID. Quality VTE Prophylaxis VTE prophylaxis: mechanical ordered
[2024-03-07] MEDS: CLOBETASOL PROPIONATE 0.05% CREAM 15 GM 1 APPLIC TOPICAL (20:04)
[2024-03-07] MEDS: ACETAMINOPHEN 325 MG TABLET 650 MG PO (22:10)
[2024-03-08] MEDS: HYDROmorphone HCL INJ (*CRX) 1 MG/ML SYR 0.5 MG IV PUSH ×2 (02:50→08:29)
[2024-03-08 06:00] VITALS: BP 135/82; PULSE 91; RESP 18; TEMP 36.6; O2SAT 97
[2024-03-08 06:08] LABS: Basophils Percent Auto 0.2 % (0.2-1.2); Eosinophils Absolute Auto 0.1 K/mm3 (0-0.3); Eosinophils Percent Auto 0.6 % (0-4.4); Hematocrit 40.2 % (37.0-47.0); Hemoglobin 13.6 g/dL (12.0-15.0); Immature Granulocyte Absolute 0.04 K/mm3 (0.00-0.031); Immature Granulocyte Percent A 0.4 % (0-0.5); Lymphocytes Absolute Auto 2.54 K/mm3 (0.9-3.2); Lymphocytes Percent Auto 26.1 % (18.3-44.2); Mean Corpuscular HGB Conc 33.8 g/dl (32-36); Mean Corpuscular Hemoglobin 31.2 pg (26-34); Mean Corpuscular Volume 92.2 fl (80-100); Mean Platelet Volume 10.1 fl (7.4-10.4); Monocytes Absolute Auto 0.6 K/mm3 (0.1-0.6); Monocytes Percent Auto 6.4 % (2.6-8.5); Neutrophils Absolute Auto 6.5 K/mm3 (1.3-6.7); Neutrophils Percent Auto 66.3 % (45.5-73.1); Platelet Count Result 293 k/mm3 (150-375); Red Blood Count 4.36 M/mm3 (4.2-5.4); Red Cell Distribution Width 12.1 % (11.5-14.5); White Blood Count 9.7 K/mm3 (4.5-10.0)
[2024-03-08 06:19] LABS: Alanine Aminotransferase 25 U/L (6-35); Albumin Level 4.1 g/dL (3.5-5.1); Alkaline Phosphatase 65 U/L (38-126); Anion Gap 7 mmol/L (4-12); Aspartate Amino Transferase 40 U/L (14-36); Bilirubin,Total 0.3 mg/dL (0.2-1.3); Blood Urea Nitrogen 15 mg/dL (7-17); Calcium 8.9 mg/dL (8.4-10.2); Carbon Dioxide 25 mmol/L (22-30); Chloride 108 mmol/L (98-107); Estimated CRCL calculation 116 ml/min; Estimated Glomerular Filt Rate > 60; Glucose 102 mg/dL (65-110); Sodium 140 mmol/L (137-145)
[2024-03-08 06:45] LABS: Erythrocyte Sedimentation Rate 38 mm/hr (0-20)
[2024-03-08] MEDS: PANTOPRAZOLE 40 MG TABLET PO (08:29)
[2024-03-08] MEDS: ONDANSETRON INJ 4 MG/2 ML VIAL IV PUSH ×2 (08:29→13:31)
[2024-03-08] MEDS: CLOBETASOL PROPIONATE 0.05% CREAM 15 GM 1 APPLIC TOPICAL ×2 (08:47→19:55)
--- NOTE | 2024-03-08 10:16 | P.PNIM_ITS ---
Progress Note: A&P Assessment and Plan (1) Back pain: Code(s): M54.9 - Dorsalgia, unspecified Status: Acute Assessment and Plan: * MR lumbar showed:FINDINGS: Bone alignment is normal. Vertebral body heights are normal. There is mildly decreased disc height at L4-L5 and moderately decreased disc height at L5-S1. The distal spinal cord signal intensity is normal. The conus medullaris is at L1. The following disc levels are specifically discussed: L1-L2: The disc does not extend beyond the endplate margin. There is mild left facet joint osteoarthritis. There is no neural foraminal stenosis. There is no central canal stenosis. L2-L3: The disc does not extend beyond the endplate margin. There is mild bilateral facet joint osteoarthritis. There is no neural foraminal stenosis. There is no central canal stenosis. L3-L4: The disc does not extend beyond the endplate margin. There is mild bilateral facet joint osteoarthritis. There is no neural foraminal stenosis. There is no central canal stenosis. L4-L5: There is a central extrusion. There is mild left facet joint osteoarthritis. There is mild left neural foraminal stenosis. There is mild central canal stenosis. L5-S1: There is a central extrusion. There is mild right and moderate left facet joint osteoarthritis. There is mild bilateral neural foraminal stenosis. There is mild central canal stenosis. IMPRESSION: 1. Mild lumbar spondylosis. * MR thoracic spine: FINDINGS: There is mild kyphosis of thoracic spine. There is 3 degrees levocurvature of cervicothoracic spine. There is mild chronic anterior wedging of T2-T7 vertebral bodies. Intervertebral disc heights are normal. The discs do not extend beyond the endplate margins. The facet joints are normal. No neural foraminal stenosis or central canal stenosis. There is spinal cord signal intensity is normal. IMPRESSION: 1. No etiology for the patient's symptoms. * Neurosurgery consult * Positive right straight leg raise. * Hydromorphone 0.5 mg ivp q4 PRN and Acetaminophen 650 mg PO q 4 PRN. * Add Cyclobenaprine 5 mg PO q 8 PRN and [place] 5-325 mg PO q 6 PRN for moderate pain. * Add PT/OT. (2) Elevated erythrocyte sedimentation rate: Code(s): R70.0 - Elevated erythrocyte sedimentation rate Status: Acute Assessment and Plan: * ESR improved from 80 to 38. * Trend labs. (3) Eczema: Code(s): L30.9 - Dermatitis, unspecified Status: Acute Assessment and Plan: * Clobetasol to left hathaway BID. Subjective Date/time seen: 03/08/24 10:16 Interval history: Patient reports that pain in back is a 2 , constant, and aching. Patient reports right thigh numbness. Patient denies chest pain, palpitations, headache, and dizziness. Denies incontinence. Father at the bedside. Review of Systems Review of Systems: All systems reviewed & are unremarkable except as noted in HPI and below Exam Const: General: no acute distress and uncomfortable Resp: Effort & Inspection: normal respiratory effort Auscultation: clear to auscultation bilaterally Cardio: Rate: regular rate Rhythm: regular rhythm GI: GI Palp: Yes Soft to palpation Auscultation: normal bowel sounds Skin: General skin exam: no rashes or lesions noted Neuro: Speech: normal speech Extrem: Other: Positive right straight leg raise. Psych: Mental Status: mental status grossly normal Affect: normal affect Objective Data Vital Signs Vital Signs: Vital Signs - 24 hr 03/07/24 14:00 03/07/24 21:11 03/07/24 20:04 Temperature 97.8 F 97.2 F L Pulse Rate 99 100 Respiratory Rate 18 20 Blood Pressure 166/104 H 141/89 H Pulse Oximetry 98 98 98 Oxygen Delivery Room Air 03/08/24 06:00 Temperature 98 F Pulse Rate 91 Respiratory Rate 18 Blood Pressure 135/82 Pulse Oximetry 97 Oxygen Delivery Intake/Output Intake/Output: Intake & Output 03/05/24 03/06/24 03/07/24 03/08/24 23:59 23:59 23:59 23:59 Intake Total 50 2160 370 Output Total 60 3000 Balance -10 -840 370 Meds/Results Medications: Active Medications Generic Name Dose Route Start Last Admin Trade Name Freq PRN Reason Stop Dose Admin Acetaminophen 650 mg 03/07/24 01:11 03/07/24 22:10 Acetaminophen 325 Mg Tablet PO 650 mg Q4H PRN Administration Mild Pain (1-3) or Fever Hydrocodone Bitart/Acetaminophen 1 tab 03/08/24 09:59 Hydrocodone/Acetaminophen (*Crx) 5-325 Mg Tablet PO Q6H PRN Pain Rated 4-6 Clobetasol Propionate 1 applic 03/07/24 21:00 03/08/24 08:47 Clobetasol Propionate 0.05% Cream 15 Gm TOPICAL 1 applic Q12HR SEAN Administration Cyclobenzaprine HCl 5 mg 03/08/24 09:59 Cyclobenzaprine Hcl 5 Mg Tablet PO Q8H PRN Muscle Spasm Diphenhydramine HCl 25 mg 03/07/24 08:14 Diphenhydramine Hcl Cap 25 Mg Capsule PO HS PRN Insomnia Hydromorphone HCl 0.5 mg 03/07/24 01:11 03/08/24 08:29 Hydromorphone Hcl Inj (*Crx) 1 Mg/Ml Syr IV PUSH 0.5 mg Q4H PRN Administration Pain Rated 7-10 Ondansetron HCl 4 mg 03/07/24 01:11 03/08/24 08:29 Ondansetron Inj 4 Mg/2 Ml Vial IV PUSH 4 mg Q4H PRN Administration Nausea Pantoprazole Sodium 40 mg 03/07/24 09:00 03/08/24 08:29 Pantoprazole 40 Mg Tablet PO 40 mg QAM SEAN Administration Radiology Results: ITS Impressions Miscellaneous CT Procedure 03/07/24 05:25 Impression: No acute abnormalities. Minimal degenerative change in the lumbar spine, as above. Lumbar Spine MRI 03/07/24 12:51 IMPRESSION: 1. Mild lumbar spondylosis. Thoracic Spine MRI 03/07/24 12:54 IMPRESSION: 1. No etiology for the patient's symptoms. Labs Labs: Laboratory Results - last 24 hr 03/08/24 05:24 WBC 9.7 RBC 4.36 Hgb 13.6 Hct 40.2 MCV 92.2 MCH 31.2 MCHC 33.8 RDW 12.1 Plt Count 293 MPV 10.1 Immature Gran % (Auto) 0.4 Neut % (Auto) 66.3 Lymph % (Auto) 26.1 [place] % (Auto) 6.4 Eos % (Auto) 0.6 Baso % (Auto) 0.2 Lymph # (Auto) 2.54 [place] # (Auto) 0.6 Eos # (Auto) 0.1 Baso # (Auto) 0.0 Abs Immat Gran (auto) 0.04 H Absolute Neuts (auto) 6.5 Absolute Nucleated RBC 0.000 Nucleated RBC % 0.0 ESR 38 H Sodium 140 Potassium 4.0 Chloride 108 H Carbon Dioxide 25 Anion Gap 7 BUN 15 D Creatinine 0.70 Estim Creat Clear Calc 116 Estimated GFR > 60 Glucose 102 Calcium 8.9 Total Bilirubin 0.3 AST 40 H ALT 25 Alkaline Phosphatase 65 Total Protein 8.0 Albumin 4.1 Quality VTE Prophylaxis VTE prophylaxis: mechanical ordered
--- NOTE | 2024-03-08 11:03 | PC.NURSE ---
On 03/08/24, the student, [Ivan Anderson], provided care and completed [facility] documentation on this patient. I have reviewed the student's documentation and agree with the findings.
[2024-03-08] MEDS: HYDROcodone/acetaminophen (*CRX) 5-325 MG TABLET 1 TAB PO ×2 (11:05→17:21)
[2024-03-08] MEDS: CYCLOBENZAPRINE HCL 5 MG TABLET PO ×2 (11:05→19:55)
[2024-03-08 14:00] VITALS: BP 140/84; PULSE 87; RESP 15; TEMP 36.6; O2SAT 97
[2024-03-08] MEDS: DOCUSATE SODIUM 100 MG CAPSULE PO (17:21)
[2024-03-08] MEDS: polyethylene glycoL 3350 17 GM POWD.PACK PO (17:21)
[2024-03-08 20:33] VITALS: BP 129/80; PULSE 91; RESP 20; TEMP 37.1; O2SAT 97
[2024-03-09] MEDS: HYDROcodone/acetaminophen (*CRX) 5-325 MG TABLET 1 TAB PO ×2 (02:55→10:29)
[2024-03-09 05:00] VITALS: BP 115/85; PULSE 86; RESP 20; TEMP 36.9; O2SAT 97
[2024-03-09] MEDS: CYCLOBENZAPRINE HCL 5 MG TABLET PO ×2 (05:14→19:59)
[2024-03-09 05:38] LABS: Basophils Absolute Auto 0.1 K/mm3 (0.0-0.1); Basophils Percent Auto 0.7 % (0.2-1.2); Eosinophils Absolute Auto 0.2 K/mm3 (0-0.3); Eosinophils Percent Auto 2.2 % (0-4.4); Hematocrit 42.4 % (37.0-47.0); Hemoglobin 13.8 g/dL (12.0-15.0); Immature Granulocyte Absolute 0.02 K/mm3 (0.00-0.031); Immature Granulocyte Percent A 0.3 % (0-0.5); Mean Corpuscular HGB Conc 32.5 g/dl (32-36); Mean Corpuscular Hemoglobin 30.5 pg (26-34); Mean Corpuscular Volume 93.6 fl (80-100); Mean Platelet Volume 9.8 fl (7.4-10.4); Monocytes Absolute Auto 0.4 K/mm3 (0.1-0.6); Monocytes Percent Auto 5.8 % (2.6-8.5); Neutrophils Absolute Auto 3.4 K/mm3 (1.3-6.7); Platelet Count Result 283 k/mm3 (150-375); Red Blood Count 4.53 M/mm3 (4.2-5.4); Red Cell Distribution Width 12.2 % (11.5-14.5); White Blood Count 7.3 K/mm3 (4.5-10.0)
[2024-03-09 05:52] LABS: Alanine Aminotransferase 50 U/L (6-35); Alkaline Phosphatase 66 U/L (38-126); Anion Gap 9 mmol/L (4-12); Aspartate Amino Transferase 57 U/L (14-36); Bilirubin,Total 0.6 mg/dL (0.2-1.3); Blood Urea Nitrogen 15 mg/dL (7-17); Calcium 8.7 mg/dL (8.4-10.2); Carbon Dioxide 22 mmol/L (22-30); Chloride 107 mmol/L (98-107); Estimated CRCL calculation 116 ml/min; Estimated Glomerular Filt Rate > 60; Glucose 89 mg/dL (65-110); Sodium 138 mmol/L (137-145)
[2024-03-09 05:58] LABS: Erythrocyte Sedimentation Rate 38 mm/hr (0-20)
[2024-03-09] MEDS: PANTOPRAZOLE 40 MG TABLET PO (08:32)
[2024-03-09] MEDS: CLOBETASOL PROPIONATE 0.05% CREAM 15 GM 1 APPLIC TOPICAL ×2 (08:32→19:59)
[2024-03-09] MEDS: polyethylene glycoL 3350 17 GM POWD.PACK PO (08:32)
--- NOTE | 2024-03-09 09:37 | WPDNEUROSGCN ---
Assessment and Plan Assessment and plan (1) Lumbar degenerative disc disease: Code(s): M51.369 - Other intervertebral disc degeneration, lumbar region without mention of lumbar back pain or lower extremity pain Status: Acute Plan Vanessa is a 33-year-old female with acute onset back pain in the setting of intermittent chronic back pain. She has degenerative discs at L4-5 and L5-S1. This is a degenerative chronic issue. She has disc protrusions in the midline at L4-5 and L5-S1. One of these may be new, but it is difficult to tell radiographically. In any case, there is no neurologic compression and simple surgery is not confidently going to be helpful for her. She should therefore make every attempt to recover from her current episode nonsurgically and follow up with me as an outpatient. This could include physical therapy who should be included in her care during her hospitalization. Adequate pain control and muscle relaxation and perhaps a consult to pain management. There is no contraindication to out of bed activity. Consult date: 03/09/24 Reason for consult: Vanessa is a 33-year-old female with a history of intermittent back pain. A day or 2 before admission she felt a pop in her back while bending in the kitchen. At 1st she felt only mild, if any, discomfort but this progressed to be more significant making it difficult for her to be upright or walk. The pain did not radiate substantially into her lower extremities. She therefore presented to the [facility] and was admitted. An MRI has been performed. She does not report specific muscle group weakness or dermatomal numbness. She has not having bowel or bladder difficulty. HPI: Vanessa Owens is a 33 year old female Review of Systems Review of Systems: Const All systems reviewed & are unremarkable except as noted in HPI and below Denies chills, Denies fever, Denies weight gain and Denies weight loss Eyes Denies change in vision and Denies diplopia ENT Denies disequilibrium Card Denies chest pain and Denies dyspnea Resp Denies cough and Denies dyspnea GI Denies abdominal pain, Denies change in bowel habits, Denies fecal incontinence and Denies vomiting Denies hematuria, Denies oliguria, Denies difficulty urinating, Denies dysuria, Denies urinary frequency, Denies urinary hesitancy, Denies urinary incontinence and Denies urinary urgency Musc Reports as per HPI Skin/ Breast Reports system reviewed and no additional complaints, except as documented Neuro Reports as per HPI Psych Reports no additional complaints, Denies depression and Denies hopelessness Endo Reports no additional complaints and Denies polyuria Simeon/ Lymph Reports no additional complaints Aller/ Immun Reports no additional complaints PMFSH Past Medical History Medical History Anxiety Depression Eczema of lower leg Gastroesophageal reflux disease without esophagitis Irritable bowel syndrome with both constipation and diarrhea Seasonal allergies Surgical History Surgical History H/O dilation and curettage H/O oral surgery Hx laparoscopic cholecystectomy 08/22/21 Family History Family History (Updated 03/07/24 @ 02:10 by Rosalva Frazier RN) Mother Diabetes mellitus Family history of bipolar disorder Hypertension Father Anxiety Depression Family history of type 1 diabetes mellitus Diabetes mellitus Sibling Anxiety Depression Non-alcoholic fatty liver disease Grandparent Diabetes mellitus Hypertension Grandparent Diabetes mellitus Cerebrovascular accident Social History Social History Smoking status: Never smoker Alcohol intake: current Alcohol use details: Socially Substance use: never Substance use type: does not use Do You Feel Safe in your Home?: Yes Lack of Transportation: No Lack of Food: Never True Current Housing: I Have Housing Concerned About Future Housing: No Difficulty Paying Gas/Electric Bills: No Difficulty Paying for Meds: No Currently Unemployed: No Education: Bachelor's Degree Difficulty w/ Childcare or Family Care: No Living arrangements: with family Occupation/Education: occupation 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 Gender identity (if verbalized by the patient): Female Sexual Orientation (if Verbalized by the Patient): Straight or Heterosexual Spiritual care concerns: No Meds Home Medications and Allergies Home Medications Medication Instructions Recorded Confirmed Type medroxyprogesterone 150 mg/mL 150 mg IM [id number] 09/26/19 03/07/24 History intramuscular suspension (Depo-Provera) terbinafine HCl 250 mg tablet 250 mg PO 2XW 05/07/23 03/07/24 History omeprazole 20 mg capsule,delayed 20 mg PO DAILY #90 caps 05/19/23 03/07/24 Rx release cholestyramine (with sugar) 4 gram 4 g PO BID #348.6 grams 03/04/24 03/07/24 Rx oral powder diphenhydramine HCl 25 mg capsule 25 mg PO HS PRN allergies 03/07/24 03/07/24 History (Benadryl) diphenhydramine HCl 25 mg capsule 25 mg PO HS PRN Insomnia 03/07/24 03/07/24 History (ZzzQuil) Allergies Allergy/AdvReac Type Severity Reaction Status Date / Time cinnamon Allergy Mild MOUTH Verified 03/06/24 20:18 BLISTERS nickel Allergy Mild Rash Verified 03/06/24 20:18 latex AdvReac Intermediate Rash Verified 03/06/24 20:18 Vital Signs Vital Signs - 24 hr 03/08/24 14:00 03/08/24 20:33 03/08/24 19:48 Temperature 97.8 F 98.7 F Pulse Rate 87 91 Respiratory Rate 15 20 Blood Pressure 140/84 129/80 Pulse Oximetry 97 97 Oxygen Delivery Room Air 03/09/24 05:00 Temperature 98.5 F Pulse Rate 86 Respiratory Rate 20 Blood Pressure 115/85 Pulse Oximetry 97 Oxygen Delivery Exam Narrative: General: cooperative, no acute distress, well developed, alert and awake Orientation/Consciousness: oriented to person, oriented to place and oriented to time Constitutional Limitations: no limitations Other: The patient is a normally developed, normal appearing female in the supine position in her hospital bed in no acute distress. He is awake, alert, and oriented x3 with good fund of knowledge, recall of events, and fluent speech. [facility] Head: normocephalic and atraumatic Ears: external ears normal Face/Nose/Sinus: Normal external nose present Eyes Eyelids: eyelids normal Pupils: Yes Pupils normal by confrontation EOM: EOMs intact bilaterally Neck General: Yes no meningeal signs, Yes supple and Yes no JVD Resp Effort/Inspection: normal respiratory effort and able to speak in complete sentences Cardio Rate: Yes regular rate GI Inspection: No abdominal distension Musc Other: Examination of the back reveals mild paraspinal tenderness. Straight leg raise is negative bilaterally. Jesus?s test is negative bilaterally. Skin General: normal color Neuro General: Yes oriented to person, Yes oriented to place, Yes oriented to time, Yes normal cognition and Yes no meningeal signs Cranial Nerves: Yes CN's II-XII intact bilaterally Other: Motor: Strength is normal, 5/5, throughout all muscle groups of the bilateral upper and lower extremities to direct confrontation. Sensory: Sensation is intact to light touch throughout the upper and lower extremities bilaterally. Reflexes: deep tendon reflexes were difficult to elicit at the knees or ankles bilaterally. There was no clonus. Gait: Gait, station, and transfers were not tested secondary to the patient's pain. Psych Appearance: grossly normal Mental status: Yes mental status grossly normal Mood: congruent mood Affect: Yes normal affect Speech/Movement: Normal speech and movement present Attitude: Yes cooperative Thought Content: Normal thought content present Review of studies: MRI of the lumbar spine was personally reviewed by me. This demonstrates degeneration of the discs at L4-5 and L5-S1 with midline disc protrusion at both levels. There is no significant central canal or neural foraminal stenosis. There is some spondylosis at the lower levels of her lumbar spine. Results Labs 03/09/24 04:58 03/09/24 04:58 Labs: Short CBC 03/09/24 Range/Units 04:58 WBC 7.3 (4.5-10.0) K/mm3 Hgb 13.8 (12.0-15.0) g/dL Hct 42.4 (37.0-47.0) % Plt Count 283 (150-375) k/mm3 BMP 03/09/24 04:58 Sodium 138 Potassium 4.0 Chloride 107 Carbon Dioxide 22 BUN 15 Creatinine 0.70 Glucose 89 Calcium 8.7 Liver Function 03/09/24 Range/Units 04:58 Total Bilirubin 0.6 (0.2-1.3) mg/dL AST 57 H (14-36) U/L ALT 50 H (6-35) U/L Alkaline Phosphatase 66 (38-126) U/L Albumin 4.0 (3.5-5.1) g/dL
[2024-03-09] MEDS: ONDANSETRON INJ 4 MG/2 ML VIAL IV PUSH (10:28)
--- NOTE | 2024-03-09 12:15 | P.PNIM_ITS ---
Progress Note: A&P Assessment and Plan (1) Back pain: Code(s): M54.9 - Dorsalgia, unspecified Status: Acute Assessment and Plan: * MR lumbar showed:FINDINGS: Bone alignment is normal. Vertebral body heights are normal. There is mildly decreased disc height at L4-L5 and moderately decreased disc height at L5-S1. The distal spinal cord signal intensity is normal. The conus medullaris is at L1. The following disc levels are specifically discussed: L1-L2: The disc does not extend beyond the endplate margin. There is mild left facet joint osteoarthritis. There is no neural foraminal stenosis. There is no central canal stenosis. L2-L3: The disc does not extend beyond the endplate margin. There is mild bilateral facet joint osteoarthritis. There is no neural foraminal stenosis. There is no central canal stenosis. L3-L4: The disc does not extend beyond the endplate margin. There is mild bilateral facet joint osteoarthritis. There is no neural foraminal stenosis. There is no central canal stenosis. L4-L5: There is a central extrusion. There is mild left facet joint osteoarthritis. There is mild left neural foraminal stenosis. There is mild central canal stenosis. L5-S1: There is a central extrusion. There is mild right and moderate left facet joint osteoarthritis. There is mild bilateral neural foraminal stenosis. There is mild central canal stenosis. IMPRESSION: 1. Mild lumbar spondylosis. * MR thoracic spine: FINDINGS: There is mild kyphosis of thoracic spine. There is 3 degrees levocurvature of cervicothoracic spine. There is mild chronic anterior wedging of T2-T7 vertebral bodies. Intervertebral disc heights are normal. The discs do not extend beyond the endplate margins. The facet joints are normal. No neural foraminal stenosis or central canal stenosis. There is spinal cord signal intensity is normal. IMPRESSION: 1. No etiology for the patient's symptoms. * Neurosurgery consult- no surgery. She has degenerative discs at L4-5 and L5- S1. This is a degenerative chronic issue. She has disc protrusions in the midline at L4-5 and L5-S1. Therapy, muscle relaxers, and pain control. * Positive right straight leg raise. * Hydromorphone 0.5 mg ivp q4 PRN and Acetaminophen 650 mg PO q 4 PRN. * Cyclobenaprine 5 mg PO q 8 PRN and [place] 5-325 mg PO q 6 PRN for moderate pain. * PT/OT. (2) Elevated erythrocyte sedimentation rate: Code(s): R70.0 - Elevated erythrocyte sedimentation rate Status: Acute Assessment and Plan: * ESR improved from 80 to 38. * Trend labs. (3) Eczema: Code(s): L30.9 - Dermatitis, unspecified Status: Acute Assessment and Plan: * Clobetasol to left hathaway BID. (4) Constipation: Code(s): K59.00 - Constipation, unspecified Status: Acute Assessment and Plan: * Miralax 17 gm PO daily * Colace 100 mg PO q12 PRN * Encourage hydration Subjective Date/time seen: 03/09/24 12:15 Interval history: Patient reports that pain in back is a 4 , constant, and aching. Reports pain is improving and she is able to move more easily. Patient denies chest pain, palpitations, headache, and dizziness. Father at the bedside. Review of Systems Review of Systems: All systems reviewed & are unremarkable except as noted in HPI and below Exam Const: General: no acute distress and uncomfortable Neck: Neck: supple Resp: Effort & Inspection: normal respiratory effort Auscultation: clear to auscultation bilaterally Cardio: Rate: regular rate Rhythm: regular rhythm GI: GI Palp: Yes Soft to palpation Auscultation: normal bowel sounds Skin: General skin exam: no rashes or lesions noted Neuro: Speech: normal speech Extrem: Other: Positive right straight leg raise. Psych: Affect: normal affect Objective Data Vital Signs Vital Signs: Vital Signs - 24 hr 03/08/24 14:00 03/08/24 20:33 03/08/24 19:48 Temperature 97.8 F 98.7 F Pulse Rate 87 91 Respiratory Rate 15 20 Blood Pressure 140/84 129/80 Pulse Oximetry 97 97 Oxygen Delivery Room Air 03/09/24 05:00 03/09/24 09:57 Temperature 98.5 F Pulse Rate 86 Respiratory Rate 20 Blood Pressure 115/85 Pulse Oximetry 97 Oxygen Delivery Room Air Intake/Output Intake/Output: Intake & Output 03/06/24 03/07/24 03/08/24 03/09/24 23:59 23:59 23:59 23:59 Intake Total 50 2160 1380 580 Output Total 60 3000 Balance - 1380 580 Meds/Results Medications: Active Medications Generic Name Dose Route Start Last Admin Trade Name Obiq PRN Reason Stop Dose Admin Acetaminophen 650 mg 03/07/24 01:11 03/07/24 22:10 Acetaminophen 325 Mg Tablet PO 650 mg Q4H PRN Administration Mild Pain (1-3) or Fever Hydrocodone Bitart/Acetaminophen 1 tab 03/08/24 09:59 03/09/24 10:29 Hydrocodone/Acetaminophen (*Crx) 5-325 Mg Tablet PO 1 tab Q6H PRN Administration Pain Rated 4-6 Clobetasol Propionate 1 applic 03/07/24 21:00 03/09/24 08:32 Clobetasol Propionate 0.05% Cream 15 Gm TOPICAL 1 applic Q12HR SEAN Administration Cyclobenzaprine HCl 5 mg 03/08/24 09:59 03/09/24 05:14 Cyclobenzaprine Hcl 5 Mg Tablet PO 5 mg Q8H PRN Administration Muscle Spasm Diphenhydramine HCl 25 mg 03/07/24 08:14 Diphenhydramine Hcl Cap 25 Mg Capsule PO HS PRN Insomnia Docusate Sodium 100 mg 03/08/24 16:25 03/08/24 17:21 Docusate Sodium 100 Mg Capsule PO 100 mg Q12H PRN Administration Constipation Hydromorphone HCl 0.5 mg 03/07/24 01:11 03/08/24 08:29 Hydromorphone Hcl Inj (*Crx) 1 Mg/Ml Syr IV PUSH 0.5 mg Q4H PRN Administration Pain Rated 7-10 Loratadine 10 mg 03/08/24 12:44 Loratadine 10 Mg Tablet PO DAILY PRN Headache/ allergies Ondansetron HCl 4 mg 03/07/24 01:11 03/09/24 10:28 Ondansetron Inj 4 Mg/2 Ml Vial IV PUSH 4 mg Q4H PRN Administration Nausea Pantoprazole Sodium 40 mg 03/07/24 09:00 03/09/24 08:32 Pantoprazole 40 Mg Tablet PO 40 mg QAM SEAN Administration Polyethylene Glycol 17 gm 03/08/24 16:25 03/09/24 08:32 Polyethylene Glycol 3350 17 Gm Powd.Pack PO 17 gm QAM SEAN Administration Radiology Results: ITS Impressions Miscellaneous CT Procedure 03/07/24 05:25 Impression: No acute abnormalities. Minimal degenerative change in the lumbar spine, as above. Lumbar Spine MRI 03/07/24 12:51 IMPRESSION: 1. Mild lumbar spondylosis. Thoracic Spine MRI 03/07/24 12:54 IMPRESSION: 1. No etiology for the patient's symptoms. Labs Labs: Laboratory Results - last 24 hr 03/09/24 04:58 WBC 7.3 RBC 4.53 Hgb 13.8 Hct 42.4 MCV 93.6 MCH 30.5 MCHC 32.5 RDW 12.2 Plt Count 283 MPV 9.8 Immature Gran % (Auto) 0.3 Neut % (Auto) 47.0 Lymph % (Auto) 44.0 [place] % (Auto) 5.8 Eos % (Auto) 2.2 Baso % (Auto) 0.7 Lymph # (Auto) 3.20 [place] # (Auto) 0.4 Eos # (Auto) 0.2 Baso # (Auto) 0.1 Abs Immat Gran (auto) 0.02 Absolute Neuts (auto) 3.4 Absolute Nucleated RBC 0.000 Nucleated RBC % 0.0 ESR 38 H Sodium 138 Potassium 4.0 Chloride 107 Carbon Dioxide 22 Anion Gap 9 BUN 15 Creatinine 0.70 Estim Creat Clear Calc 116 Estimated GFR > 60 Glucose 89 Calcium 8.7 Total Bilirubin 0.6 AST 57 H ALT 50 H Alkaline Phosphatase 66 Total Protein 7.0 Albumin 4.0 Quality VTE Prophylaxis VTE prophylaxis: mechanical ordered
[2024-03-09 14:00] VITALS: BP 121/79; PULSE 87; RESP 18; TEMP 36.6; O2SAT 100
[2024-03-09 20:15] VITALS: BP 139/84; PULSE 86; RESP 16; TEMP 36.7; O2SAT 97
[2024-03-09 22:26] VITALS: BP 123/83; PULSE 98; RESP 18; TEMP 37; O2SAT 97
[2024-03-10 06:00] VITALS: BP 112/74; PULSE 87; RESP 18; TEMP 36.7; O2SAT 97
[2024-03-10 06:01] LABS: Basophils Percent Auto 0.4 % (0.2-1.2); Eosinophils Absolute Auto 0.2 K/mm3 (0-0.3); Eosinophils Percent Auto 2.9 % (0-4.4); Hematocrit 43.7 % (37.0-47.0); Hemoglobin 14.3 g/dL (12.0-15.0); Immature Granulocyte Absolute 0.02 K/mm3 (0.00-0.031); Immature Granulocyte Percent A 0.3 % (0-0.5); Lymphocytes Absolute Auto 2.46 K/mm3 (0.9-3.2); Lymphocytes Percent Auto 31.2 % (18.3-44.2); Mean Corpuscular HGB Conc 32.7 g/dl (32-36); Mean Corpuscular Hemoglobin 30.6 pg (26-34); Mean Corpuscular Volume 93.4 fl (80-100); Mean Platelet Volume 9.8 fl (7.4-10.4); Monocytes Absolute Auto 0.5 K/mm3 (0.1-0.6); Monocytes Percent Auto 5.8 % (2.6-8.5); Neutrophils Absolute Auto 4.7 K/mm3 (1.3-6.7); Neutrophils Percent Auto 59.4 % (45.5-73.1); Platelet Count Result 284 k/mm3 (150-375); Red Blood Count 4.68 M/mm3 (4.2-5.4); Red Cell Distribution Width 12.1 % (11.5-14.5); White Blood Count 7.9 K/mm3 (4.5-10.0)
[2024-03-10 06:18] LABS: Erythrocyte Sedimentation Rate 35 mm/hr (0-20)
[2024-03-10 06:29] LABS: Alanine Aminotransferase 60 U/L (6-35); Albumin Level 4.2 g/dL (3.5-5.1); Alkaline Phosphatase 69 U/L (38-126); Anion Gap 9 mmol/L (4-12); Aspartate Amino Transferase 63 U/L (14-36); Bilirubin,Total 0.7 mg/dL (0.2-1.3); Blood Urea Nitrogen 13 mg/dL (7-17); Calcium 9.2 mg/dL (8.4-10.2); Carbon Dioxide 26 mmol/L (22-30); Chloride 104 mmol/L (98-107); Estimated CRCL calculation 116 ml/min; Estimated Glomerular Filt Rate > 60; Glucose 92 mg/dL (65-110); Potassium 4.2 mmol/L (3.4-5.0); Sodium 139 mmol/L (137-145)
[2024-03-10] MEDS: PANTOPRAZOLE 40 MG TABLET PO (08:41)
[2024-03-10] MEDS: polyethylene glycoL 3350 17 GM POWD.PACK PO (08:41)
[2024-03-10] MEDS: CLOBETASOL PROPIONATE 0.05% CREAM 15 GM 1 APPLIC TOPICAL (08:42)
[2024-03-10] MEDS: HYDROcodone/acetaminophen (*CRX) 5-325 MG TABLET 1 TAB PO (08:45)
--- NOTE | 2024-03-10 08:53 | P.PNIM_ITS ---
Progress Note: A&P Assessment and Plan (1) Back pain: Code(s): M54.9 - Dorsalgia, unspecified Status: Acute Assessment and Plan: * MR lumbar showed:FINDINGS: Bone alignment is normal. Vertebral body heights are normal. There is mildly decreased disc height at L4-L5 and moderately decreased disc height at L5-S1. The distal spinal cord signal intensity is normal. The conus medullaris is at L1. The following disc levels are specifically discussed: L1-L2: The disc does not extend beyond the endplate margin. There is mild left facet joint osteoarthritis. There is no neural foraminal stenosis. There is no central canal stenosis. L2-L3: The disc does not extend beyond the endplate margin. There is mild bilateral facet joint osteoarthritis. There is no neural foraminal stenosis. There is no central canal stenosis. L3-L4: The disc does not extend beyond the endplate margin. There is mild bilateral facet joint osteoarthritis. There is no neural foraminal stenosis. There is no central canal stenosis. L4-L5: There is a central extrusion. There is mild left facet joint osteoarthritis. There is mild left neural foraminal stenosis. There is mild central canal stenosis. L5-S1: There is a central extrusion. There is mild right and moderate left facet joint osteoarthritis. There is mild bilateral neural foraminal stenosis. There is mild central canal stenosis. IMPRESSION: 1. Mild lumbar spondylosis. * MR thoracic spine: FINDINGS: There is mild kyphosis of thoracic spine. There is 3 degrees levocurvature of cervicothoracic spine. There is mild chronic anterior wedging of T2-T7 vertebral bodies. Intervertebral disc heights are normal. The discs do not extend beyond the endplate margins. The facet joints are normal. No neural foraminal stenosis or central canal stenosis. There is spinal cord signal intensity is normal. IMPRESSION: 1. No etiology for the patient's symptoms. * Neurosurgery consult- no surgery. She has degenerative discs at L4-5 and L5- S1. This is a degenerative chronic issue. She has disc protrusions in the midline at L4-5 and L5-S1. Therapy, muscle relaxers, and pain control. * Positive right straight leg raise. * Acetaminophen 650 mg PO q 4 PRN. * Cyclobenaprine 5 mg PO q 8 PRN and [place] 5-325 mg PO q 6 PRN for moderate pain. * PT/OT. (2) Elevated erythrocyte sedimentation rate: Code(s): R70.0 - Elevated erythrocyte sedimentation rate Status: Acute Assessment and Plan: * ESR improved from 80 to 38. * Trend labs. (3) Eczema: Code(s): L30.9 - Dermatitis, unspecified Status: Acute Assessment and Plan: * Clobetasol to left hathaway BID. (4) Constipation: Code(s): K59.00 - Constipation, unspecified Status: Acute Assessment and Plan: * Miralax 17 gm PO daily * Colace 100 mg PO q12 PRN * Encourage hydration Subjective Date/time seen: 03/10/24 08:53 Interval history: 33 year old female that came to the hospital with back pain mildly decreased disc height at L4-L5 and moderately decreased disc height at L5-S1. Patient reports that pain in back is a 4 , constant, and aching. Reports pain is improving and she is able to move more easily. Patient denies chest pain, palpitations, headache, and dizziness. Father at the bedside. Review of Systems Review of Systems: All systems reviewed & are unremarkable except as noted in HPI and below Exam Const: General: no acute distress and uncomfortable Neck: Neck: supple Resp: Effort & Inspection: normal respiratory effort Auscultation: clear to auscultation bilaterally Cardio: Rate: regular rate Rhythm: regular rhythm GI: Auscultation: normal bowel sounds Skin: General skin exam: no rashes or lesions noted Other: eczema patch to left hathaway. Neuro: Speech: normal speech Extrem: General: no pedal edema Other: Positive right straight leg raise. Psych: Mental Status: mental status grossly normal Affect: normal affect Objective Data Vital Signs Vital Signs: Vital Signs - 24 hr 03/09/24 09:57 03/09/24 14:00 03/09/24 20:15 Temperature 97.9 F 98.1 F Pulse Rate 87 86 Respiratory Rate 18 16 Blood Pressure 121/79 139/84 Pulse Oximetry 100 97 Oxygen Delivery Room Air 03/09/24 22:26 03/09/24 19:55 03/10/24 06:00 Temperature 98.6 F 98.0 F Pulse Rate 98 87 Respiratory Rate 18 18 Blood Pressure 123/83 112/74 Pulse Oximetry 97 97 Oxygen Delivery Room Air Intake/Output Intake/Output: Intake & Output 11/11/24 03/08/24 03/09/24 03/10/24 23:59 23:59 23:59 23:59 Intake Total 2160 1380 1540 Output Total 3000 Balance -840 1380 1540 Meds/Results Medications: Active Medications Generic Name Dose Route Start Last Admin Trade Name Freq PRN Reason Stop Dose Admin Acetaminophen 650 mg 03/07/24 01:11 03/07/24 22:10 Acetaminophen 325 Mg Tablet PO 650 mg Q4H PRN Administration Mild Pain (1-3) or Fever Hydrocodone Bitart/Acetaminophen 1 tab 03/08/24 09:59 03/10/24 08:45 Hydrocodone/Acetaminophen (*Crx) 5-325 Mg Tablet PO 1 tab Q6H PRN Administration Pain Rated 4-6 Clobetasol Propionate 1 applic 03/07/24 21:00 03/10/24 08:42 Clobetasol Propionate 0.05% Cream 15 Gm TOPICAL 1 applic Q12HR SEAN Administration Cyclobenzaprine HCl 5 mg 03/08/24 09:59 03/09/24 19:59 Cyclobenzaprine Hcl 5 Mg Tablet PO 5 mg Q8H PRN Administration Muscle Spasm Diphenhydramine HCl 25 mg 03/07/24 08:14 Diphenhydramine Hcl Cap 25 Mg Capsule PO HS PRN Insomnia Docusate Sodium 100 mg 03/08/24 16:25 03/08/24 17:21 Docusate Sodium 100 Mg Capsule PO 100 mg Q12H PRN Administration Constipation Hydromorphone HCl 0.5 mg 03/07/24 01:11 03/08/24 08:29 Hydromorphone Hcl Inj (*Crx) 1 Mg/Ml Syr IV PUSH 0.5 mg Q4H PRN Administration Pain Rated 7-10 Loratadine 10 mg 03/08/24 12:44 Loratadine 10 Mg Tablet PO DAILY PRN Headache/ allergies Ondansetron HCl 4 mg 03/07/24 01:11 03/09/24 10:28 Ondansetron Inj 4 Mg/2 Ml Vial IV PUSH 4 mg Q4H PRN Administration Nausea Pantoprazole Sodium 40 mg 03/07/24 09:00 03/10/24 08:41 Pantoprazole 40 Mg Tablet PO 40 mg QAM SEAN Administration Polyethylene Glycol 17 gm 03/08/24 16:25 03/10/24 08:41 Polyethylene Glycol 3350 17 Gm Powd.Pack PO 17 gm QAM SEAN Administration Radiology Results: ITS Impressions Miscellaneous CT Procedure 03/07/24 05:25 Impression: No acute abnormalities. Minimal degenerative change in the lumbar spine, as above. Lumbar Spine MRI 03/07/24 12:51 IMPRESSION: 1. Mild lumbar spondylosis. Thoracic Spine MRI 03/07/24 12:54 IMPRESSION: 1. No etiology for the patient's symptoms. Labs Labs: Laboratory Results - last 24 hr 03/10/24 05:50 WBC 7.9 RBC 4.68 Hgb 14.3 Hct 43.7 MCV 93.4 MCH 30.6 MCHC 32.7 RDW 12.1 Plt Count 284 MPV 9.8 Immature Gran % (Auto) 0.3 Neut % (Auto) 59.4 Lymph % (Auto) 31.2 Rich % (Auto) 5.8 Eos % (Auto) 2.9 Baso % (Auto) 0.4 Lymph # (Auto) 2.46 Rich # (Auto) 0.5 Eos # (Auto) 0.2 Baso # (Auto) 0.0 Abs Immat Gran (auto) 0.02 Absolute Neuts (auto) 4.7 Absolute Nucleated RBC 0.000 Nucleated RBC % 0.0 ESR 35 H Sodium 139 Potassium 4.2 Chloride 104 Carbon Dioxide 26 Anion Gap 9 BUN 13 Creatinine 0.70 Estim Creat Clear Calc 116 Estimated GFR > 60 Glucose 92 Calcium 9.2 Total Bilirubin 0.7 AST 63 H ALT 60 H Alkaline Phosphatase 69 Total Protein 8.0 Albumin 4.2 Quality VTE Prophylaxis VTE prophylaxis: mechanical ordered
[2024-03-10] MEDS: GABAPENTIN 300 MG CAPSULE PO (11:18)
[2024-03-10] MEDS: ONDANSETRON INJ 4 MG/2 ML VIAL IV PUSH (11:20)
--- NOTE | 2024-03-10 12:48 | P.DS_ITS ---
DS: Admitting Diagnosis Discharge Date 03/10/2024 Admitting Diagnosis acute back pain DS: Discharge Diagnosis Discharge Diagnosis (1) Back pain: Code(s): M54.9 - Dorsalgia, unspecified Status: Acute Assessment and Plan: * MR lumbar showed:FINDINGS: Bone alignment is normal. Vertebral body heights are normal. There is mildly decreased disc height at L4-L5 and moderately decreased disc height at L5-S1. The distal spinal cord signal intensity is normal. The conus medullaris is at L1. The following disc levels are specifically discussed: L1-L2: The disc does not extend beyond the endplate margin. There is mild left facet joint osteoarthritis. There is no neural foraminal stenosis. There is no central canal stenosis. L2-L3: The disc does not extend beyond the endplate margin. There is mild bilateral facet joint osteoarthritis. There is no neural foraminal stenosis. T here is no central canal stenosis. L3-L4: The disc does not extend beyond the endplate margin. There is mild bilateral facet joint osteoarthritis. There is no neural foraminal stenosis. There is no central canal stenosis. L4-L5: There is a central extrusion. There is mild left facet joint osteoarthritis. There is mild left neural foraminal stenosis. There is mild central canal stenosis. L5-S1: There is a central extrusion. There is mild right and moderate left facet joint osteoarthritis. There is mild bilateral neural foraminal stenosis. There is mild central canal stenosis. IMPRESSION: 1. Mild lumbar spondylosis. * MR thoracic spine: FINDINGS: There is mild kyphosis of thoracic spine. There is 3 degrees levocurvature of cervicothoracic spine. There is mild chronic anterior wedging of T2-T7 vertebral bodies. Intervertebral disc heights are normal. The discs do not extend beyond the endplate margins. The facet joints are normal. No neural foraminal stenosis or central canal stenosis. There is spinal cord signal intensity is normal. IMPRESSION: 1. No etiology for the patient's symptoms. * Neurosurgery consult- no surgery. She has degenerative discs at L4-5 and L5- S1. This is a degenerative chronic issue. She has disc protrusions in the midline at L4-5 and L5-S1. Therapy, muscle relaxers, and pain control. * Positive right straight leg raise. * Acetaminophen 650 mg PO q 4 PRN. * Cyclobenaprine 5 mg PO q 8 PRN and [place] 5-325 mg PO q 6 PRN for moderate pain. * PT/OT. (2) Elevated erythrocyte sedimentation rate: Code(s): R70.0 - Elevated erythrocyte sedimentation rate Status: Acute Assessment and Plan: * ESR improved from 80 to 38. * Trend labs. (3) Eczema: Code(s): L30.9 - Dermatitis, unspecified Status: Acute Assessment and Plan: * Clobetasol to left hathaway BID. (4) Constipation: Code(s): K59.00 - Constipation, unspecified Status: Acute Assessment and Plan: * Miralax 17 gm PO daily * Colace 100 mg PO q12 PRN * Encourage hydration DS: Summary Hospital Course Reason for hospitalization: disc protrusions in the midline at L4-5 and L5-S1 Hospital Course: Patient is a 33 year old female that came to the hospital with back pain. Pain is in lower back that is a 5 , constant, and aching. Patient denies chest pain, palpitations, headache, dizziness, nausea, vomiting, numbness, or tingling. Patient reports that she set down in kitchen yesterday and there was a loud pop in back like she was hit by lightening. Patient reports that later she got up to do dishes and raise window that is a little tight, then her back pain got worse. Patient reports thigh weakness for the last couple of weeks. Patient reports one episode of urine incontinence when sitting on the couch. Family at bedside. patient was seen by Neurosurgery for disc protrusions in the midline at L4-5 and L5-S1. One of these may be new, but it is difficult to tell radiographically. In any case, there is no neurologic compression and simple surgery is not confidently going to be helpful for her. She should therefore make every attempt to recover from her current episode nonsurgically and follow up with me as an outpatient. patient with improvement in pain and mobility however she states that there is shock-like pain as started on gabapentin. Hospital course was patient is stable for discharge. Status at Discharge Functional status at discharge: independent ambulation Time Spent with Patient Time attestation: Total time spent providing and/or coordinating discharge services: Exam Narrative: General: well appearing, appears stated age. HEENT: normocephalic, atraumatic. Mucous membranes moist. EOMI, PERRLA, bilateral sclera anicteric, no conjunctival injection. Neck supple without JVD, lymphadenopathy, or bruit. Respiratory: clear to ascultation bilaterally. No rales/rhonic/wheezes. Cardiovascular: Regular rate and rhythm, normal S1-S2 upon ascultation. No murmurs, rubs, or clicks. PMI is nondisplaced, capillary refill less than 3 second. Abdomen: Soft, round, no pulsatile masses, nondistended and nontender. No rebound, no guarding. No CVA tenderness, no hepatosplenomegaly. Bowel sounds present to all four quadrants. No high pitch or tinkling sounds, resonant to percussion. Extremities: No cyanosis, clubbing, or edema present. Pulses are palpable 2/2. Active ROM to all four extremities. Neuro: Alert and orientated x 4. PERRLA. Cranial nerves 2-12 intact without focal deficit. Skin: Warm, dry, and intact, without rash, erythema, or lesion. Psych: pleasant, cooperative, normal speech, normal affect, no hallucinations, no dysarthia Const: General: no acute distress and uncomfortable Neck: Neck: supple Resp: Effort & Inspection: normal respiratory effort Auscultation: clear to auscultation bilaterally Cardio: Rate: regular rate Rhythm: regular rhythm GI: Auscultation: normal bowel sounds Skin: General skin exam: no rashes or lesions noted Other: eczema patch to left hathaway. Neuro: Speech: normal speech Extrem: General: no pedal edema Other: Positive right straight leg raise. Psych: Mental Status: mental status grossly normal Affect: normal affect DS: Data Data Completed and Pending Pending studies at discharge: None Labs on day of discharge: Labs from last 24 hours 03/10/24 05:50 WBC 7.9 RBC 4.68 Hgb 14.3 Hct 43.7 MCV 93.4 MCH 30.6 MCHC 32.7 RDW 12.1 Plt Count 284 MPV 9.8 Immature Gran % (Auto) 0.3 Neut % (Auto) 59.4 Lymph % (Auto) 31.2 [place] % (Auto) 5.8 Eos % (Auto) 2.9 Baso % (Auto) 0.4 Lymph # (Auto) 2.46 [place] # (Auto) 0.5 Eos # (Auto) 0.2 Baso # (Auto) 0.0 Abs Immat Gran (auto) 0.02 Absolute Neuts (auto) 4.7 Absolute Nucleated RBC 0.000 Nucleated RBC % 0.0 ESR 35 H Sodium 139 Potassium 4.2 Chloride 104 Carbon Dioxide 26 Anion Gap 9 BUN 13 Creatinine 0.70 Estim Creat Clear Calc 116 Estimated GFR > 60 Glucose 92 Calcium 9.2 Total Bilirubin 0.7 AST 63 H ALT 60 H Alkaline Phosphatase 69 Total Protein 8.0 Albumin 4.2 Discharge Plan Discharge Consulting providers: Kira Lam Discharging Clinician: Suzie Siegel Anticipated Discharge Date/Time: 03/10/24 12:59 Patient Disposition: Home, Self-Care Activity: may shower Diet: regular Discharge Instructions: Discharge instructions: Take medications as prescribed New medications prescribed: Flexeril, gabapentin, and [place] you may take 500 Tylenol every 6 hours and 400 mg of ibuprofen every 6 hours, to help manage pain and cut down on narcotic use. You are activity as tolerated Monitor blood pressures Avoid social areas, you wear a mask when in social settings Encouraged to continue with yearly vaccinations Return to the emergency department if he developed sudden shortness of breath, chest pain, nausea, vomiting, upset stomach or intractable diarrhea Return to the emergency department if you develop fever greater than 101.5 Follow-up with: Your primary care physician within 1-2 weeks for post hospitalization check up Thank you for choosing [facility] for your healthcare needs Patient Instructions: Pain Management (DC), Chronic Back Pain (DC), Back Pain (GEN) Stand Alone Forms: General Discharge Information Follow-up/Referrals: Kira Lam MD [Physician] - ( as needed) Discharge Medications: New gabapentin [Neurontin] 300 mg Capsule 300 mg PO TID 14 Days Qty: 42 0RF cyclobenzaprine 5 mg tablet 5 mg PO TID PRN (Reason: muscle spasm) Qty: 30 0RF Continued terbinafine HCl 250 mg tablet 250 mg PO 2XW Rx Instructions: Thursday/ diphenhydramine HCl [Benadryl] 25 mg Capsule 25 mg PO HS PRN (Reason: allergies) diphenhydramine HCl [ZzzQuil] 25 mg Capsule 25 mg PO HS PRN (Reason: Insomnia) medroxyprogesterone [Depo-Provera] 150 mg/mL suspension 150 mg IM [id number] Patient Comments: pt states she is due the end of February omeprazole 20 mg capsule,delayed release(DR/EC) 20 mg PO DAILY Qty: 90 4RF cholestyramine (with sugar) 4 gram powder 4 g PO BID Qty: 348.6 0RF Rx Instructions: administer w/meal; avoid other meds within 1hr before or 4-6hr after dose Date of admission: 03/07/24 01:11 Primary Care Provider: Deacon Faith Admitting Provider: Lory Matthews V. Attending physician on admission: Lory Matthews V. Condition: Stable Quality VTE Prophylaxis VTE prophylaxis: mechanical ordered Hospitalist MIPS Heart Failure (Exclusion) Patient has history of Heart Transplant or Left Ventricular Assistive Device?: No IF YES, STOP HERE Heart Failure (Qualifier) Patient has current or prior documentation of LVEF less than or equal to 40%, or mod/servere depressed LVSF?: No IF NO, STOP HERE
== END 2024-03-10 14:45 | disposition home or self-care (01) ==
LOC: ANHED 20:38 → ANH2MED 03-07 02:02
PROVIDERS: Nurse Practitioner Family; Physician Assistant; Admitting Provider Internal Medicine; Emergency Provider Student in an Organized Health Care Education/Training Program; PCP Family Medicine; Visit Provider Internal Medicine
DX: M51.26 Other intervertebral disc displacement, lumbar region (principal); M51.27 Other intervertebral disc displacement, lumbosacral region; M51.369 Other intervertebral disc degeneration, lumbar region without mention of lumbar back pain or lower extremity pain; M51.379 Other intervertebral disc degeneration, lumbosacral region without mention of lumbar back pain or lower extremity pain; R70.0 Elevated erythrocyte sedimentation rate; L30.9 Dermatitis, unspecified; R32 Unspecified urinary incontinence; K58.2 Mixed irritable bowel syndrome; F41.9 Anxiety disorder, unspecified; F32.A Depression, unspecified; K21.9 Gastro-esophageal reflux disease without esophagitis; J30.2 Other seasonal allergic rhinitis; Z32.02 Encounter for pregnancy test, result negative; Z79.3 Long term (current) use of hormonal contraceptives; Z79.899 Other long term (current) drug therapy
CPT/HCPCS: 36415; 72132; 72157; 72158; 74177; 80048; 80053; 81001; 81025; 83735; 85025; 85610; 85652; 86140; 87086; 96365; 96374; 96375; 96376; 97110; 97161; 97165; 97530; 99285; A9270; A9577; G0378; J0696; J1100; J1171; J2405; Q9967

== ENCOUNTER 2024-06-30 06:36 | Outpatient (CLI) | payer OTHER, SELFPAY ==
--- OUTSIDE RECORDS SUMMARY | 2024-06-30 06:40 | XMS_ITS | Patient Health Summary ---
Author Organization [facility] Address [address] [place] [address] Care Team Providers Care Corrosion Prevention Metal Sprayer Name Role Phone Deacon Faith Primary Care Provider [phone] Note from [facility],non-owned Affiliates and Associated Physician Practices is amultiple site organization consisting of ambulatory clinics and hospital sitesin [place], [place], [place] and [place]. This disclosure is being madepursuant to the Care Everywhere program and may not contain all information available regarding this patient. Last updated 18.[facility] Allergies * Cinnamon Medications * Be aware that medications may not be up to date on this document. Always verify current medications with the patient. * OMEPRAZOLE PO * SERTRALINE HCL PO * MedroxyPROGESTERone Acetate (DEPO-PROVERA IM) Social History Tobacco Use Types Packs/Day Years Used Date Smoking Tobacco: Never Smokeless Tobacco: Never Sex and Gender Information Value Date Recorded Sex Assigned at Not on file Gender Identity Not on file Sexual Orientation Not on file Last Filed Vital Signs Vital Sign Reading Time Taken Comments Blood Pressure 124/76 03/16/2018 9:42 AM TRANSFER KNITTER Pulse 110 03/16/2018 9:42 AM TRANSFER KNITTER Temperature 37.1 C (98.8 F) 03/16/2018 9:42 AM TRANSFER KNITTER Respiratory Rate 16 03/16/2018 9:42 AM TRANSFER KNITTER Oxygen Saturation 98% 03/16/2018 9:42 AM TRANSFER KNITTER Inhaled Oxygen Concentration - - Weight 98.9 kg (218 lb) 03/16/2018 9:42 AM TRANSFER KNITTER Height 162.6 cm (5' 4 ) 03/16/2018 9:42 AM TRANSFER KNITTER Body Mass Index 37.42 03/16/2018 9:42 AM TRANSFER KNITTER Procedures * INFLUENZA A+B - POINT OF CARE (AMB)(Performed 03/16/2018) Performed for Strep throat * STREP A SCREEN - POINT OF CARE (AMB) STL(Performed 03/16/2018) Performed for Strep throat * STREP A SCREEN - POINT OF CARE (AMB) STL(Performed 04/14/2017) Performed for Acute pharyngitis, unspecified etiology Results * INFLUENZA A+B - POINT OF CARE (AMB) (03/16/2018 9:55 AM TRANSFER KNITTER) Influenza A Antigen Rapid Negative Negative Influenza B Antigen Rapid Negative Negative Influenza Internal Control present NEGATIVE - POSITIVE Influenza Lot Number [id number] Influenza Expiration Date 05/25/2019 Other NASOPHARYNGEAL SWAB / Unknown 03/16/2018 9:55 AM TRANSFER KNITTER Asia Mayes APRN-[facility] - POINT OF CA RE ORDERABLES * (ABNORMAL) STREP A SCREEN - POINT OF CARE (AMB) STL (03/16/2018 9:54 AM TRANSFER KNITTER) Only the most recent of2 resultswithin the time period is included. Strep A Rapid POCT Positive(A) Negative Strep A Internal Control Present Lot # [id number] Expiration Date 08/19/2019 Throat ENTIRE THROAT (SURFACE REGION OF NECK) / Unknown 03/16/2018 9:54 AM TRANSFER KNITTER Asia Mayes APRN-[facility] - POINT OF CA RE ORDERABLES Care Teams Corrosion Prevention Metal Sprayer Relationship Specialty Start Date End Date Deacon Faith DO [facility] [place] [address] PCP - General 08/27/21
--- OUTSIDE RECORDS SUMMARY | 2024-06-30 06:40 | XMS_ITS | Referral Summary ---
Author Organization [facility] Address [address] [place] [address] Care Team Providers Care Assistant Professor Of Philosophy Name Role Phone Deacon Faith Primary Care Provider [phone] Source Comments [facility],non-[facility] Affiliates and Associated Physician Practices is amultiple site organization consisting of ambulatory clinics and hospital sitesin [place], [place], [place] and [place]. This disclosure is being madepursuant to the Care Everywhere program and may not contain all information available regarding this patient. Last updated 18.[facility] Let Allergies Active Allergy Reactions Criticality Noted Date Comments Cinnamon 04/14/2017 Medications * Be aware that medications may not be up to date on this document. Alwaysverify current medications with the patient. Medication Sig Dispensed Refills Start Date End Date Status OMEPRAZOLE PO Active SERTRALINE HCL PO Active MedroxyPROGESTERone Acetate (DEPO-PROVERA IM) Active Social History Tobacco Use Types Packs/Day Years Used Date Smoking Tobacco: Never Smokeless Tobacco: Never Sex and Gender Information Value Date Recorded Sex Assigned at Not on file Gender Identity Not on file Sexual Orientation Not on file Last Filed Vital Signs Vital Sign Reading Time Taken Comments Blood Pressure 124/76 03/16/2018 9:42 AM DIVINE HEALER Pulse 110 03/16/2018 9:42 AM DIVINE HEALER Temperature 37.1 C (98.8 F) 03/16/2018 9:42 AM DIVINE HEALER Respiratory Rate 16 03/16/2018 9:42 AM DIVINE HEALER Oxygen Saturation 98% 03/16/2018 9:42 AM DIVINE HEALER Inhaled Oxygen Concentration - - Weight 98.9 kg (218 lb) 03/16/2018 9:42 AM DIVINE HEALER Height 162.6 cm (5' 4 ) 03/16/2018 9:42 AM DIVINE HEALER Body Mass Index 37.42 03/16/2018 9:42 AM DIVINE HEALER Plan of Treatment Not on file Care Teams Assistant Professor Of Philosophy Relationship Specialty Start Date End Date Deacon Faith DO [address] [place] [address] PCP - General 08/27/21
--- OUTSIDE RECORDS SUMMARY | 2024-06-30 06:40 | XMS_ITS | Clinical Summary ---
Author Organization [facility] Address [address] [place] [address] Care Team Providers Care Neurological Physiotherapist Name Role Phone Deacon Faith Primary Care Provider [phone] Source Comments [facility] Affiliates and Associated Physician Practices is amultiple site organization consisting of ambulatory clinics and hospital sitesin [place], [place], [place] and [place]. This disclosure is being madepursuant to the Care Everywhere program and may not contain all information available regarding this patient. Last updated 18.[facility] Allergies Active Allergy Reactions Criticality Noted Date Comments Nubia 04/14/2017 Medications * Be aware that medications may not be up to date on this document. Alwaysverify current medications with the patient. Medication Sig Dispensed Refills Start Date End Date Status OMEPRAZOLE PO Active SERTRALINE HCL PO Active MedroxyPROGESTERone Acetate (DEPO-PROVERA IM) Active Family History Medical History Relation Name Comments Diabetes - Type 2 Father Diabetes - Type 2 Mother Relation Name Status Comments Father Mother Social History Tobacco Use Types Packs/Day Years Used Date Smoking Tobacco: Never Smokeless Tobacco: Never Sex and Gender Information Value Date Recorded Sex Assigned at Not on file Gender Identity Not on file Sexual Orientation Not on file Last Filed Vital Signs Vital Sign Reading Time Taken Comments Blood Pressure 124/76 03/16/2018 9:42 AM DIRECTOR ZONE Pulse 110 03/16/2018 9:42 AM DIRECTOR ZONE Temperature 37.1 C (98.8 F) 03/16/2018 9:42 AM DIRECTOR ZONE Respiratory Rate 16 03/16/2018 9:42 AM DIRECTOR ZONE Oxygen Saturation 98% 03/16/2018 9:42 AM DIRECTOR ZONE Inhaled Oxygen Concentration - - Weight 98.9 kg (218 lb) 03/16/2018 9:42 AM DIRECTOR ZONE Height 162.6 cm (5' 4 ) 03/16/2018 9:42 AM DIRECTOR ZONE Body Mass Index 37.42 03/16/2018 9:42 AM DIRECTOR ZONE Plan of Treatment Health Maintenance Due Date Last Done Comments PAP SMEAR 1989 HIV SCREENING 2004 HEPATITIS C SCREENING 08/08/2007 DTAP/TDAP/TD VACCINES (1 - Tdap) 2008 HEPATITIS B VACCINE (1 of 3 - 19+ 3-dose series) 2008 COVID-19 VACCINE ( - 2023-2 5 season) 2023 INFLUENZA VACCINE (#1) 2023 DEPRESSION SCREENING 04/27/2024 ZOSTER VACCINE (1 of 2) 08/13/2039 HIB VACCINE Aged Out No longer eligi ble based on patient's age to complete this topic HPV VACCINE Aged Out No longer eligi ble based on patient's age to complete this topic MENINGOCOCCAL (Group B) VACCINE Aged Out No longer eligible based on patient's age to complete this topic MENINGOCOCCAL VACCINE Aged Out No daphney sheri eligible based on patient's age to complete this topic PNEUMOCOCCAL VACCINE Aged Out No long er eligible based on patient's age to complete this topic Care Teams Neurological Physiotherapist Relationship Specialty Start Date End Date Deacon Faith DO [address] [place] [id number] [facility] - General 08/27/21
[2024-06-30 07:19] LABS: Alanine Aminotransferase 38 U/L (6-35); Albumin Level 4.2 g/dL (3.5-5.1); Alkaline Phosphatase 76 U/L (38-126); Aspartate Amino Transferase 48 U/L (14-36); Bilirubin,Total 0.9 mg/dL (0.2-1.3); Cholesterol 141 mg/dL (0-200); HDL Direct 31 mg/dL; Triglycerides 92 mg/dL (<150)
[2024-06-30 07:31] LABS: LDL Cholesterol Direct 80 mg/dL
== END 2024-06-30 06:37 | disposition home or self-care (01) ==
LOC: ANHLAB 06:38
PROVIDERS: PCP Family Medicine; Visit Provider Family Medicine
DX: R74.8 Abnormal levels of other serum enzymes (principal); E66.9 Obesity, unspecified; Z79.899 Other long term (current) drug therapy
CPT/HCPCS: 36415; 80061; 80076; 99212; G0463

== ENCOUNTER 2024-10-27 06:46 | Outpatient (CLI) | payer OTHER, SELFPAY ==
--- OUTSIDE RECORDS SUMMARY | 2024-10-27 06:49 | XMS_ITS | Clinical Summary ---
Author Organization [facility] Address [address] [place] [address] Care Team Providers Care Metallurgical Engineering Teacher Name Role Phone Deacon Faith DO Primary Care Provider [phone] Source Comments [facility],non-[facility] Affiliates and Associated Physician Practices is amultiple site organization consisting of ambulatory clinics and hospital sitesin [place], [place], [place] and [place]. This disclosure is being madepursuant to the Care Everywhere program and may not contain all information available regarding this patient. Last updated 18.[facility] Allergies Active Allergy Reactions Criticality Noted Date Comments Cinnamon 04/14/2017 Medications * Be aware that medications may not be up to date on this document. Alwaysverify current medications with the patient. 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 Gender Identity Not on file Sexual Orientation Not on file Last Filed Vital Signs Vital Sign Reading Time Taken Comments Blood Pressure 124/76 03/16/2018 9:42 AM AIRPORT MANAGER Pulse 110 03/16/2018 9:42 AM AIRPORT MANAGER Temperature 37.1 C (98.8 F) 03/16/2018 9:42 AM AIRPORT MANAGER Respiratory Rate 16 03/16/2018 9:42 AM AIRPORT MANAGER Oxygen Saturation 98% 03/16/2018 9:42 AM AIRPORT MANAGER Inhaled Oxygen Concentration - - Weight 98.9 kg (218 lb) 03/16/2018 9:42 AM AIRPORT MANAGER Height 162.6 cm (5' 4) 03/16/2018 9:42 AM AIRPORT MANAGER Body Mass Index 37.42 03/16/2018 9:42 AM AIRPORT MANAGER Plan of Treatment Health Maintenance Due Date Last Done Comments HIV SCREENING 2004 HEPATITIS C SCREENING 08/08/2007 DTAP/TDAP/TD VACCINES (1 - Tdap) 2008 HEPATITIS B VACCINE (1 of 3 - 19+ 3-dose series) 2008 COVID-19 VACCINE ( - 2023-2 5 season) 2023 DEPRESSION SCREENING 04/27/2024 INFLUENZA VACCINE (Season Ended) 2024 ZOSTER VACCINE (1 of 2) 08/13/2039 HIB VACCINE Aged Out No longer eligi ble based on patient's age to complete this topic HPV VACCINE Aged Out No longer eligi ble based on patient's age to complete this topic MENINGOCOCCAL (Group B) VACC INE SHARED DECISION-MAKING Aged Out No longer eligibl e based on patient's age to complete this topic MENINGOCOCCAL GROUPS A/C/Y/W VACCINE Aged Out No longer eligible b ased on patient's age to complete this topic PNEUMOCOCCAL VACCINE Aged Out No long er eligible based on patient's age to complete this topic Insurance [employer] Care Teams Metallurgical Engineering Teacher Relationship Specialty Start Date End Date Deacon Faith DO [address] [place] [id number] PCP - General 08/27/21
[2024-10-27 07:30] LABS: Hematocrit 43.9 % (37.0-47.0); Hemoglobin 14.3 g/dL (12.0-15.0); Mean Corpuscular HGB Conc 32.6 g/dl (32-36); Mean Corpuscular Hemoglobin 30.0 pg (26-34); Mean Corpuscular Volume 92.2 fl (80-100); Platelet Count Result 294 k/mm3 (150-375); Red Blood Count 4.76 M/mm3 (4.2-5.4); White Blood Count 5.1 K/mm3 (4.5-10.0)
[2024-10-27 07:37] LABS: Alanine Aminotransferase 23 U/L (6-35); Albumin Level 4.1 g/dL (3.5-5.1); Alkaline Phosphatase 67 U/L (38-126); Anion Gap 11 mmol/L (4-12); Aspartate Amino Transferase 50 U/L (14-36); Bilirubin,Total 0.5 mg/dL (0.2-1.3); Blood Urea Nitrogen 10 mg/dL (7-17); Calcium 9.1 mg/dL (8.4-10.2); Carbon Dioxide 21 mmol/L (22-30); Chloride 110 mmol/L (98-107); Cholesterol 151 mg/dL (0-200); Estimated Glomerular Filt Rate > 60; Glucose 100 mg/dL (65-110); HDL Direct 32 mg/dL; Potassium 4.0 mmol/L (3.4-5.0); Sodium 142 mmol/L (137-145); Total Protein 7.7 g/dL (6.3-8.2); Triglycerides 75 mg/dL (<150)
[2024-10-27 08:05] LABS: Hemoglobin A1C 5.4 % (<5.7)
[2024-10-27 08:07] LABS: Thyroid Stimulating Hormone 2.270 uIU/mL (0.465-4.680)
[2024-10-27 08:37] LABS: Thyroid Stimulating Hormone Reflex 2.310 uIU/mL (0.465-4.68)
== END 2024-10-27 06:47 | disposition home or self-care (01) ==
PROVIDERS: PCP Family Medicine; Referring Provider Nurse Practitioner; Visit Provider Family Medicine
DX: R61 Generalized hyperhidrosis (principal); R74.8 Abnormal levels of other serum enzymes; E66.9 Obesity, unspecified; Z79.899 Other long term (current) drug therapy
CPT/HCPCS: 36415; 80053; 80061; 83036; 84443; 85027